=== PATIENT | female | born 1990 | race Caucasian/White ===

== ENCOUNTER 2019-06-07 14:31 | Emergency (ER) | payer OTHER, MEDICAID, SELFPAY ==
[2019-06-07 14:38] VITALS: BP 108/81; PULSE 97; RESP 18; O2SAT 99; BMI 35.5
== END 2019-06-07 14:46 | disposition left against medical advice (07) ==
LOC: ER 15:03
PROVIDERS: Emergency Provider Nurse Practitioner Family; Family Provider Family Medicine; PCP Family Medicine
DX: O99.89 Other specified diseases and conditions complicating pregnancy, childbirth and the puerperium (principal); R10.9 Unspecified abdominal pain; Z3A.09 9 weeks gestation of pregnancy; Z53.21 Procedure and treatment not carried out due to patient leaving prior to being seen by health care provider
CPT/HCPCS: 99281

== ENCOUNTER 2019-09-08 20:22 | Outpatient (CLI) | payer OTHER, MEDICAID, SELFPAY ==
[2019-09-08 20:38] VITALS: BP 112/71; PULSE 81; RESP 16; TEMP 36.4
[2019-09-08 20:39] VITALS: BMI 36.6
[2019-09-08 21:13] VITALS: BP 111/68; PULSE 84
[2019-09-08 21:53] LABS: Bilirubin Urine Neg (NEGATIVE); Blood Urine Neg (Negative); Glucose Urine UA Norm (Normal); Ketones Urine Negative (Negative); Leukocyte Esterase Urine Negative (Negative); Nitrate Urine Negative (Negative); Protein Urine Neg (Negative); Urine Appearance Clear (CLEAR); Urine Color Yellow (Yellow); Urobilinogen Urine 4 mg/dL (Negative); pH Urine 5 (5-7)
[2019-09-08 21:56] LABS: Add Urine Culture? No; Bacteria Urine 1+; Hyaline Casts Urine 0-4; Mucus Urine 3+; RBC Urine 0-4 /hpf (0-2)
[2019-09-08 22:15] VITALS: BP 111/68; PULSE 84
== END 2019-09-09 00:20 | disposition home or self-care (01) ==
LOC: OPOB 20:24 → OBGYN 20:25
PROVIDERS: PCP Family Medicine; Visit Provider Family Medicine
DX: O36.8190 Decreased fetal movements, unspecified trimester, not applicable or unspecified (principal); Z3A.00 Weeks of gestation of pregnancy not specified
CPT/HCPCS: 59025; 81001; 99211

== ENCOUNTER 2019-12-24 08:37 | Outpatient (CLI) | payer OTHER, MEDICAID, SELFPAY ==
[2019-12-24 08:53] VITALS: BP 119/78; PULSE 98
[2019-12-24 09:08] VITALS: BMI 35.6
[2019-12-24 09:11] VITALS: BP 122/80; PULSE 85
[2019-12-24 09:26] VITALS: BP 123/78; PULSE 84
[2019-12-24 09:31] VITALS: TEMP 36.7
[2019-12-24 09:41] VITALS: BP 119/73; PULSE 94
[2019-12-24 09:53] VITALS: BP 119/73; PULSE 94; RESP 16; TEMP 36.7
== END 2019-12-24 09:53 | disposition home or self-care (01) ==
LOC: OPOB 08:37 → OBGYN 08:38
PROVIDERS: PCP Family Medicine; Visit Provider Family Medicine
DX: O16.9 Unspecified maternal hypertension, unspecified trimester (principal); Z3A.00 Weeks of gestation of pregnancy not specified
CPT/HCPCS: 59025; 99211

== ENCOUNTER 2019-12-30 12:51 | Inpatient (IN) | payer OTHER, MEDICAID, SELFPAY ==
[2019-12-30] VITALS (21 sets, daily range): BP systolic 0–147; BP diastolic 0–105; PULSE 65–91; RESP 16–25; TEMP 36.3–36.9; O2SAT 95–100; BMI 35.6
[2019-12-30] MEDS: lactated ringers 1,000 ML 999 ML IV (13:00)
[2019-12-30] MEDS: lactated ringers 1,000 ML 125 ML (14:08)
--- NOTE | 2019-12-30 15:45 | P.ANESASSM_ITS ---
Pre-Anesthetic Assessment Pre-Anesthetic Assessment: Height/Weight: Height 1.68 m Temp Pulse Resp BP 98.5 F 84 18 147/88 12/30/19 13:17 12/30/19 15:17 12/30/19 13:17 12/30/19 15:17 Preop Diagnosis: IUP Proposed Procedure: Familial anesthetic complications: none Last intake: 0900 - water solids > 8 hrs Social: Social History: No alcohol and No tobacco Exam: Pre-Anes Outpt Exam: alert, oriented x 3, clear to auscultation bilaterally and regular rate & rhythm Airway: Cervical ROM: WNL MP: 2 Dentition: Full GI: GI: GERD Metabolic: Metabolic: Morbid obesity Neuropsych: Neuropsych: Depression Anesthetic Plan: ASA status: 2 Anesthesia: Regional (specify below) Risk of > 500 ml blood loss (7ml/kg in children): Yes, adequate IV access and fluids planned PFSH Anesthesia PFSH: Medical History (Updated 05/22/19 @ 16:53 by Tresa De Los Santos, RN) Patient denies medical problems Denies history of: high blood pressure, diabetes, heart, lung, liver, kidney, thyroid, bleeding problems, or clotting problems. PCP: Dr. Wade Surgical History (Updated 05/22/19 @ 16:55 by Tresa De Los Santos RN) History of appendectomy (~10/2011) [place]aroscopic [place] [facility] [place] History of dilation and curettage (~08/18/18) With suction, per Dr. Liu at [facility] Previous section (~11/06/16) Low transverse section. Performed by Dr. Le at [place] in [place], [place]. Diagnosis: Twin gestation. Single layer closure of the uterus. 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
--- NOTE | 2019-12-30 15:50 | PC.NURSE ---
Monitors removed to clean abd.
[2019-12-30] MEDS: metoclopramide 5 mg/mL SDV 2 mL 10 MG IV (15:54)
[2019-12-30] MEDS: citric acid-sodium citrate 30 mL UDC PO (15:54)
[2019-12-30] MEDS: famotidine 20 mg/2 mL INJ IVP (15:54)
--- NOTE | 2019-12-30 16:00 | PC.NURSE ---
Patient taken to OR room down stairs in surgery assisted by nurse via wheelchair.
--- NOTE | 2019-12-30 16:01 | P.HP_ITS ---
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 She has a history of C-sections, and was scheduled for a repeat section next week. She had been having some contractions throughout this week. Today she came in was having a hard contractions that she was having to breathe through there happened about every 5 minutes. Her cervix was found to be about 3 cm dilated. Despite hydration, her contractions continued. As result the decision was made to proceed with a repeat section today. Her is otherwise been unremarkable. She is GBS negative. She is PCR COVID negative. Her glucose screen was negative. She rubella immune. Her blood type is O+. Present Details : 5 Para: 4 Review of Systems General: Reports: 10 or more systems reviewed and unremarkable except in HPI and below Const: Denies: fever(s) Card: Denies: chest pain or irregular heart rhythm Resp: Denies: dyspnea GI: Reports: heartburn : Reports: pelvic pain and other (Vaginal pressure) Musc: Reports: back pain Medications/Allergies Home Medications Medication Instructions Recorded Confirmed Last Taken Type fluoxetine [Prozac] 40 mg PO DAILY 12/24/19 12/24/19 12/23/19 History prenat.vits,jarrett,xgd-npoh-rzjon 1 mg PO DAILY 12/24/19 12/24/19 Unknown History Allergies Allergy/AdvReac Type Severity Reaction Status Date / Time metronidazole [From Flagyl] AdvReac Flu-like Verified 05/22/19 16:51 symptoms 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 PCP: Dr. Wade Surgical History History of appendectomy (~10/2011) Laparoscopic procedure Performed by Dr Magaña [place] [facility] [place], [place], History of dilation and curettage (~08/18/18) With suction, per Dr. Liu at [facility] Previous section (~11/06/16) Low transverse section. Performed by Dr. Le at [facility] in [place], [place]. Diagnosis: Twin gestation. Single layer closure of the uterus. 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 Other Female Reproductive History: Hx Age of Menarche: 10 Duration of menses: other (5 days) Cycle Length: 28 days History History History 5 Term 2 Miscarriages/Ectopic 1 1 Living Children 4 Vitals/I&O/Wt Last Vital Signs Temp 98.5 F 12/30/19 13:17 Pulse 84 12/30/19 15:17 Resp 18 12/30/19 13:17 BP 0/0 12/30/19 15:46 Physical Exam Const: COMMON NORMALS: patient oriented x3 and alert HENMT: COMMON NORMALS: moist oral mucous membranes HEAD & SCALP: normal to inspection Chest: COMMONS NORMALS: normal inspection of the chest Resp: COMMON NORMALS: clear to auscultation bilaterally AUSCULTATION: clear to auscultation bilaterally Cardio: COMMON NORMALS: regular rate and regular rhythm RATE: regular rate RHYTHM: regular rhythm GI: INSPECTION: Yes normal to inspection and Yes other (Gravid) Extremity: COMMON NORMALS: normal to inspection GENERAL: Yes edema (Trace) Neuro: COMMON NORMALS: patient oriented x3, moves all extremities and no sensory deficits noted SENSORIUM/ORIENTATION: Yes alert Psych: COMMON NORMALS: mental status grossly normal Skin: COMMON NORMALS: no rashes or lesions noted GENERAL SKIN EXAM: no rashes or lesions noted A&P Assessment and plan (1) 39 weeks gestation of : We will proceed with her low transverse section. We discussed the risk of bleeding, and infection once again. She and her have no further questions and wished to proceed. Status: Acute (2) Active labor: Status: Acute Attestations Medical Necessity Statement*: I anticipate routine and post C- section care Coding Level of Care Code Acute Pci Security Consultant for Chg Fwd Diagnoses 39 weeks gestation of Z3A.39 Active labor
--- NOTE | 2019-12-30 16:13 | PC.NURSE ---
Arrived to OR room at 1613 and care handed over to surgical staff.
[2019-12-30 16:21] LABS: Basophils % 0.4 %; Eosinophils # 0.1 10^3/uL (0.0-0.8); Hematocrit 29.3 % (37.0-47.0); Hemoglobin 8.7 g/dL (11.5-15.3); Lymphocytes # 2.1 10^3/uL (0.8-4.8); Lymphocytes % 19.9 %; Mean Corpuscular HGB Conc 29.7 g/dL (30.0-36.0); Mean Corpuscular Hemoglobin 23.8 pg (28.0-34.0); Mean Corpuscular Volume 80.3 fL (81-99); Monocytes # 0.6 10^3/uL (0.2-0.9); Monocytes % 5.6 %; Neutrophils # 7.82 10^3/uL (1.8-7.7); Neutrophils % 72.5 %; Nucleated Red Blood Cells % 0 %; Platelet Count 251 10^3/cmm (130-400); Red Blood Count 3.65 10^6/uL (4.1-5.3); Red Cell Distribution Width 15.4 % (12.1-15.1); White Blood Count 10.8 10^3/uL (4.0-10.0)
--- NOTE | 2019-12-30 17:23 | PM.OP ---
Operative Report Date of procedure: December 30, 2019 Pre-op Diagnosis: 39-week EGA female in active labor with previous Post-op diagnosis: same Procedure Done: Repeat lower transverse section Specimens removed/disposition: Female infant with a weight of 6 pounds 1 ounce and Apgars of 7 and 9 Pathology: none sent Anesthesia: Epidural Estimated blood loss (mL): 400 Condition: stable Disposition: floor (OB) Brief History: Refer to history and physical Procedure: The patient was brought back to the operating room where she was prepped and draped in usual sterile fashion. Anesthesia was found to be adequate. A lower transverse skin incision was then made with a #10 blade. I then dissected down to the underlying subcutaneous tissue until arriving at the prerectal fascia. The fascia was then nicked with the scalpel bilaterally. The fascial incisions were then carried laterally with Soler scissors. Attention was then turned to the superior aspect of the incision which was grasped with kochers and tented up away from the underlying rectus abdominis muscles. The muscles were then dissected away from the fascia manually, and later with Soler scissors. Attention was then turned to the inferior aspect of the incision, and the fascia was dissected away from the underlying muscle in similar fashion. The rectus abdominis muscles were then spread manually. The peritoneum was entered manually. Excellent visualization of the uterus was noted. There was extensive peritoneal adhesions noted. A lower transverse uterine incision was then made with a #10 blade. Upon arriving at the intrauterine cavity, the uterine incision was then extended manually. The was noted to be in vertex position. The baby was delivered without difficulty. After delivery of the head, the mouth and nose were suctioned at the site of the incision. There was no meconium. There was no nuchal cord. The remainder of the body was then delivered and placed on the abdomen. The cord was cut and clamped. The baby was then handed to the waiting nurse. The placenta was removed intact. The intrauterine cavity was cleansed of any remaining debris. I elected to leave the uterus in the abdomen rather than breakdown all adhesions. The uterine incision was reapproximated in 2 layers. The first layer was performed with 0 Vicryl in a running locked stitch. The second layer was an imbricating stitch also using 0 Vicryl. The uterus was replaced into the abdomen. The peritoneum was then irrigated with warm saline. I reexamined the uterine incision and found it to be hemostatic. The rectus abdominis muscles were then reapproximated using 0 Vicryl in a running stitch. The fascia was then reapproximated using 0 Vicryl in running stitch. The subcutaneous tissue was then reapproximated using 0 Vicryl on a CTX. The skin was reapproximated using matt. A sterile dressing was placed. All counts were correct x2. Both the mother and baby were in stable condition.
--- NOTE | 2019-12-30 17:42 | SUR.PHASEI ---
1724 PT AWAKE ALERT TALKATIVE, WARM BLANKETS X 3 TO PT ABD SOFT DRESSING D/I TO LOWER ANTERIOR ABD, RAH PAD D/I PT WAS SPINAL WITH MAC PT HAS NORMAL SENSATION TO T 7 LEVEL
--- NOTE | 2019-12-30 18:00 | PC.NURSE ---
Patient brought to our ob floor from surgery via bed assisted by surgery staff.
--- NOTE | 2019-12-30 18:22 | SUR.PHASEI ---
1755 PT LOWER ABD MASSAGED FUNDUS AT UMBILICUS AREA, MASSAGED TO 2 FINGERS BELOW UMBILICUS, RAH PAD CHANGED WITH 3/4 MOD SATURATION NO CLOTS NOTED PT ALERT PT STATES NORMAL SENSATION TO T12 AREA NOW AND CAN MOVE THIGHS GROSSLY. PT TO FLOOR PER CART WITH AT BEDSIDE 1810 PT TO BED WITH SLIDE BOARD 3 NURSES, PT ALERT GISELL COOPERATIVE, , UP IN BED HOB AT 30 DEGREES, PT INFORMED NOT TO ELEVATE HOB BUT TO LET NURSE MOVE HEAD UP UNTIL SHE CAN FREELY MOVE HER KNEES. PT AGREED AND REMINDED NOT TO GET UP WITHOUT ASSISTANCE, BP 121/83 HR 70 SATS ON RA 99%
--- NOTE | 2019-12-30 18:26 | SUR.PHASEI ---
1809 KIM CATHETER PATENT OF YELLOW URINE NOT EMPTIED IN PACU
[2019-12-30 22:20] LABS: Basophils % 0.2 %; Eosinophils % 0.2 %; Hematocrit 23.2 % (37.0-47.0); Hemoglobin 6.9 g/dL (11.5-15.3); Lymphocytes # 2.1 10^3/uL (0.8-4.8); Lymphocytes % 16.8 %; Mean Corpuscular HGB Conc 29.7 g/dL (30.0-36.0); Mean Corpuscular Hemoglobin 23.8 pg (28.0-34.0); Mean Platelet Volume 9.7 fL (7.4-10.4); Monocytes # 0.7 10^3/uL (0.2-0.9); Monocytes % 5.8 %; Neutrophils # 9.43 10^3/uL (1.8-7.7); Neutrophils % 76.6 %; Nucleated Red Blood Cells % 0 %; Platelet Count 226 10^3/cmm (130-400); Red Cell Distribution Width 15.1 % (12.1-15.1); White Blood Count 12.3 10^3/uL (4.0-10.0)
[2019-12-31] VITALS (11 sets, daily range): BP systolic 104–127; BP diastolic 68–87; PULSE 68–81; RESP 14–18; TEMP 36.4–37.1; O2SAT 95–98
[2019-12-31] MEDS: dextrose 5%-lactated ringers 1,000 ML 125 ML IV (02:00)
[2019-12-31] MEDS: diphenhydrAMINE 50 mg/mL SDV 1mL 25 MG IVP ×2 (03:49→06:54)
[2019-12-31 05:53] LABS: Hematocrit 22.9 % (37.0-47.0); Mean Corpuscular HGB Conc 25.8 g/dL (30.0-36.0); Mean Corpuscular Hemoglobin 23.8 pg (28.0-34.0); Mean Corpuscular Volume 92.3 fL (81-99); Mean Platelet Volume 9.8 fL (7.4-10.4); Platelet Count 164 10^3/cmm (130-400); Red Blood Count 2.48 10^6/uL (4.1-5.3); Red Cell Distribution Width 15.9 % (12.1-15.1); White Blood Count 8.4 10^3/uL (4.0-10.0)
[2019-12-31 06:33] LABS: Hemoglobin 5.9 g/dL (11.5-15.3)
[2019-12-31] MEDS: acetaminophen 500 mg Tablet 1000 MG PO (06:54)
[2019-12-31] MEDS: ketorolac 30 mg/mL INJ IVP (06:54)
--- NOTE | 2019-12-31 09:48 | ANE.PACU2 ---
Inpatient post-anesthesia follow up: Airway intact: Yes Vital signs: Temperature 98.5 F Pulse Rate 71 Respiratory Rate 18 Blood Pressure 112/78 Pulse Oximetry 96 Oxygen Delivery Me thod Room Air Oxygen Flow Rate Fraction of Inspir ed Oxygen Hydration adequate: Yes Nausea and vomiting: No Pain level: 2 Mental status: Baseline Additional Comments: no signs of infection at neuraxial site, no headaches, up and walking no weakness
--- NOTE | 2019-12-31 09:59 | PC.NURSE ---
IV infiltrated blood transfusion paused to restart IV
[2019-12-31] MEDS: docusate sodium 100 mg Capsule PO ×2 (10:51→17:07)
[2019-12-31] MEDS: ferrous sulfate EC 325 mg Tablet PO ×2 (10:51→17:07)
[2019-12-31] MEDS: prenatal vitamin Capsule 1 CAP PO (10:51)
[2019-12-31] MEDS: fluoxetine 20 mg Capsule 40 MG PO (10:51)
--- NOTE | 2019-12-31 11:23 | P.PN_ITS ---
DIRECTOR REGULATORY COMPLIANCE Subjective Subjective: Interval history: The patient is doing very well. Her pain is been well controlled. She is not comfortable. She has noted no signs of hypovolemia. She has been urinating well. Her urine output is been appropriate. Her vitals have all been within normal limits. Labor: Station: -4 Amniotic Membrane Status: Intact Monitor Mode: External Contraction Pattern: Regular Status: Category l Vitals/I&O/Wt Last Vital Signs Temp 98.7 F 12/31/19 10:55 Pulse 71 12/31/19 10:30 Resp 16 12/31/19 10:30 BP 116/87 12/31/19 10:30 Pulse Ox 96 12/31/19 10:30 12/30/19 12/31/19 12/31/19 22:59 06:59 14:59 Intake Total 50 / 50 1999 / 2049 350 / 350 Output Total 720 / 720 600 / 1320 Balance -670 / -670 1400 / 730 350 / 350 Weight last 48 hrs Weight 221 lb Physical Exam Narrative: EXAM NARRATIVE: She is in no acute distress Lungs are clear auscultation bilaterally Her heart has a regular rate and rhythm Her fundus is below the umbilicus and firm Her dressing is clean, dry and intact Her extremities have trace edema Urinary Catheter Management^: F: Cath Placed During This Visit: yes Urinary Catheter Date of Insertion: 12/30/19 Urinary Catheter Time of Insertion: 16:30 Data : 12/31/19 05:45 A&P Assessment and plan (1) Status post : The patient appears to be doing very well in all regards with exception of her blood counts. While they have dropped an appropriate amount post , her blood counts were low before the . She has been given 1 unit of blood. We will get another CBC checked this afternoon. I am still hopeful she can go home tomorrow. Status: Acute Attestations Medical Necessity Statement*: Routine post care Coding Level of Care Code Acute Blind Hooker for David Leonard Diagnoses Status post Z98.891
--- NOTE | 2019-12-31 12:35 | PC.NURSE ---
@ 0838 blood transfusion rate changed to 240mL/hr for the duration of the transfusion.
[2019-12-31 14:57] LABS: Basophils % 0.3 %; Eosinophils % 0.2 %; Hematocrit 32.3 % (37.0-47.0); Lymphocytes # 2.7 10^3/uL (0.8-4.8); Lymphocytes % 18.3 %; Mean Corpuscular HGB Conc 30.3 g/dL (30.0-36.0); Mean Corpuscular Hemoglobin 24.4 pg (28.0-34.0); Mean Corpuscular Volume 80.3 fL (81-99); Mean Platelet Volume 9.7 fL (7.4-10.4); Monocytes # 0.8 10^3/uL (0.2-0.9); Monocytes % 5.7 %; Neutrophils # 10.81 10^3/uL (1.8-7.7); Neutrophils % 74.9 %; Nucleated Red Blood Cells % 0 %; Platelet Count 265 10^3/cmm (130-400); Red Blood Count 4.02 10^6/uL (4.1-5.3); Red Cell Distribution Width 15.2 % (12.1-15.1); White Blood Count 14.5 10^3/uL (4.0-10.0)
[2019-12-31 15:10] LABS: Hemoglobin 9.8 g/dL (11.5-15.3)
[2019-12-31] MEDS: HYDROcodone-acetaminophen 5-325 mg Tablet PO ×2 (17:16→21:56)
[2020-01-01] MEDS: HYDROcodone-acetaminophen 5-325 mg Tablet PO (03:47)
[2020-01-01 03:55] VITALS: BP 127/89; PULSE 82; RESP 17; O2SAT 96
--- NOTE | 2020-01-01 06:45 | P.DS_ITS ---
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 Performed by Dr. Le at [facility] in [place], [place]. Diagnosis: Twin gestation. Single layer closure of the uterus. (3) 39 weeks gestation of : Status: Acute Reason for Visit Reason for Visit: Abdominal pain Hospital Course Hospital Course: The patient is a 39-week female with a history of a lower transverse section who presented to the hospital in active labor. She was scheduled for a repeat section, as result we proceeded with a repeat on the day of admission. The was unremarkable. Her original hemoglobin was 8.7. I performed another hemoglobin approximately 4 hours after the surgery and she dropped to 6.9. The following morning she had dropped to 5.9. As result I elected to transfuse 1 unit of blood. Surprisingly, she increased to 9.8 after the unit. Hemodynamically, the patient was completely stable. Her urine output was always excellent. Her vitals were always within normal limits. Her bleeding postoperatively was minimal. She breast-fed, with some difficulty, but with the assistance of the nurse she was able to continue breast-feeding. Information Peripartum Data: Delivery Method: Section Physical Exam Narrative: EXAM NARRATIVE: She is in no acute distress Lungs are clear auscultation bilaterally Her heart has a regular rate and rhythm Her fundus is below the umbilicus and firm Her dressing is clean, dry and there are 2 matt in the midportion of the incision that have come out. I have instructed the nurses to place Steri-Strips in the nares. Her extremities have trace edema Urinary Catheter Management^: F: Cath Placed During This Visit: yes Urinary Catheter Date of Insertion: 12/30/19 Urinary Catheter Time of Insertion: 16:30 Discharge Data Data Completed and Pending: Pending at discharge Category Date Time Status Leukocyte Reduced RBC Routine Lab 12/30/19 13:45 Results Type and Screen R outine Lab 12/30/19 13:45 Results Labs from last 24 hours 12/31/19 12/30/19 14:42 13:45 WBC 14.5 H RBC 4.02 L Hgb 9.8 L D Hct 32.3 L D MCV 80.3 L D MCH 24.4 L MCHC 30.3 D RDW 15.2 H Plt Count 265 MPV 9.7 Neut % (Auto) 74.9 Lymph % (Auto) 18.3 Cole % (Auto) 5.7 Eos % (Auto) 0.2 Baso % (Auto) 0.3 Neut # (Auto) 10.81 H Lymph # (Auto) 2.7 Cole # (Auto) 0.8 Eos # (Auto) 0.0 Baso # (Auto) 0.0 Nucleated RBC % (a uto) 0 Nucleated RBCs # 0.0 Blood Type O Positive Rho(D) Type Positive Antibody Screen Negative Crossmatch See Detail Vitals: Last Vital Signs Temp 98.4 F 12/31/19 16:40 Pulse 82 01/01/20 03:55 Resp 17 01/01/20 03:55 BP 127/89 01/01/20 03:55 Pulse Ox 96 01/01/20 03:55 Discharge Plan Discharge Patient Disposition: Home Condition: Stable Prescriptions: New hydrocodone-acetaminophen 5-325 mg Tablet 1 - 2 tab PO Q4H PRN (Reason: Moderate To Severe Pain) Qty: 30 RF: 0 ferrous sulfate 325 mg (65 mg iron) Tablet,Delayed Release (Dr/Ec) See Rx Instructions .ROUTE .COMPLEX Qty: 60 RF: 1 ibuprofen 800 mg Tablet 800 mg PO TID Qty: 45 RF: 0 Continued fluoxetine [Prozac] 20 mg Capsule 40 mg PO DAILY RF: 0 prenat.vits,jarrett,zdx-heoa-aoynh capsule 1 mg PO DAILY RF: 0 Discharge Orders: Discharge Order (Routine); Ordered 01/01/20 Ordered By: Tony Luis Referrals: Tony Luis MD [Physician] - 4-7 days Discharge Diet: Usual diet Discharge Activity: Limit activity as instructed Discharge Attestations PRODUCT DEVELOPMENT CONSULTANT Time Spent in Discharge Care*: less than 30 min Coding Level of Care Code Acute Leather Shaver for Chg Fwd Diagnoses Status post Z98.891 Previous section Z98.891 39 weeks gestation of Z3A.39
[2020-01-01] MEDS: prenatal vitamin Capsule 1 CAP PO (08:28)
[2020-01-01] MEDS: docusate sodium 100 mg Capsule PO (08:28)
[2020-01-01] MEDS: ferrous sulfate EC 325 mg Tablet PO (08:28)
[2020-01-01] MEDS: fluoxetine 20 mg Capsule 40 MG PO (08:28)
[2020-01-01 09:25] VITALS: BP 129/86; PULSE 91; RESP 16; TEMP 36.7
[2020-01-01 09:35] VITALS: BP 129/86; PULSE 91; RESP 16; TEMP 36.7
== END 2020-01-01 09:30 | disposition home or self-care (01) | DRG 788 ==
LOC: OBGYN 12:52
PROVIDERS: Admitting Provider Family Medicine; PCP Family Medicine; Visit Provider Family Medicine
PROC: 10D00Z1 Extraction of Products of Conception, Low, Open Approach (ICD-10-PCS; CPT 59514; principal; 2019-12-30 16:30)
DX: O34.211 Maternal care for low transverse scar from previous cesarean delivery (principal); Z3A.39 39 weeks gestation of pregnancy; Z37.0 Single live birth
CPT/HCPCS: 12345; 36415; 36430; 51702; 59025; 59409; 85025; 85027; 86850; 86900; 86920; 96375; G0378; J0690; J1200; J1885; J2274; J2765; J3490; P9016

== ENCOUNTER 2020-05-16 10:24 | Emergency (ER) | payer OTHER, MEDICAID, SELFPAY ==
[2020-05-16 10:29] VITALS: BP 140/92; PULSE 97; RESP 16; TEMP 36.9; O2SAT 98; BMI 33.9
--- NOTE | 2020-05-16 10:29 | ED_ITS ---
HPI - Abdominal Pain General: Chief Complaint: Abdominal Pain Stated Complaint: Abd Pain Time Seen by Provider: 05/16/20 10:27 History of Present Illness: HPI narrative: 29-year-old male presents emergency room with complaint of abdominal pain. Right upper quadrant and epigastric pain radiating around to her back and into her shoulder. She is not had any dysuria urgency or frequency no hematuria. She has a baby by section approximately 4 months ago. Said intermittent episodes in the past but this is by far the most intense. She was seen earlier today at [facility] and had an ultrasound done that was reviewed after being read by the radiologist here. Labs were forwarded from [facility] and scanned in the chart as well liver enzymes were normal MD elicited complaint: abdominal pain Onset (ago): hour(s) Pain Consistency: constant Location: Epigastric Severity: mild Quality: cramping Radiation: other (Right shoulder) Migration to: RUQ Exacerbating factors: eating Relieving factors: nothing Associated Symptoms: Reports anorexia and GI cramping; Denies belching, bloating, change in bowel habits, change in stool character, chills, coffee ground emesis, constipation, diarrhea, dyspepsia, dysuria, excessive flatus, fever(s), heartburn, hematochezia, hematuria, hematemesis, fecal incontinence, loose stools, melena, nausea, poor appetite, syncope and vomiting Review of Systems Const: Denies: fever(s) or chills ENMT: Denies: throat pain, ear or mastoid pain, nasal discharge or nasal congestion Card: Denies: syncope Resp: Denies: dyspnea, productive cough or non-productive cough GI: Reports: GI cramping; Denies: nausea, vomiting, hematemesis, coffee ground emesis, heartburn, diarrhea, constipation, belching, excessive flatus, fecal incontinence, change in bowel habits, change in stool character, hematochezia or melena : Denies: dysuria or hematuria Skin/Breast: Denies: rash or pruritus PFSH ED PFSH: Medical History Patient denies medical problems Denies history of: high blood pressure, diabetes, heart, lung, liver, kidney, thyroid, bleeding problems, or clotting problems. PCP: Dr. Spurling Surgical History History of appendectomy (~10/2011) Laparoscopic procedure Performed by Dr Magaña at [facility] in [place], [place], History of dilation and curettage (~08/18/18) With suction, per Dr. Liu at [facility] Previous section (~11/06/16) Low transverse section. Performed by Dr. Le at [facility] in [place], [place]. Diagnosis: Twin gestation. Single layer closure of the uterus. 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 Physical Exam Const: COMMON NORMALS: no acute distress GENERAL APPEARANCE: cooperative and comfortable ORIENTATION/CONSCIOUSNESS: Yes awake, Yes oriented to person, Yes oriented to place and Yes oriented to time HENMT: COMMON NORMALS: normocephalic, atraumatic and hearing grossly normal bilaterally HEAD & SCALP: normocephalic and atraumatic Neck/C-Spine: COMMON NORMALS: no JVD Resp: COMMON NORMALS: normal respiratory effort, No retractions, No use of accessory muscles and clear to auscultation bilaterally AUSCULTATION: clear to auscultation bilaterally Cardio: COMMON NORMALS: no JVD, regular rate, regular rhythm and No murmurs present (Cardio) RATE: regular rate RHYTHM: regular rhythm GI: COMMON NORMALS: Soft to palpation and No hepatosplenomegaly present AUSCULTATION: Yes normoactive bowel sounds PALPATION: Yes Soft to palpation, Yes Tenderness to palpation present (GI) (No guarding or rebound negative Christensen sign) Details: RUQ, No Guarding due to palpation present (GI) and Yes No hepatosplenomegaly present Extremity: COMMON NORMALS: normal to inspection, capillary refill normal, no clubbing, cyanosis or edema, no calf tenderness and no pedal edema Neuro: SENSORIUM/ORIENTATION: Yes oriented to person, Yes oriented to place and Yes oriented to time Skin: COMMON NORMALS: no rashes or lesions noted GENERAL SKIN EXAM: no rashes or lesions noted Course Vital Signs: Vital signs: Vital Signs Temperature 98.4 F 05/16/20 10:29 Pulse Rate 77 05/16/20 11:57 Respiratory Rate 17 05/16/20 11:57 Blood Pressure 128/83 05/16/20 11:57 Pulse Oximetry 97 05/16/20 11:57 MDM - Abdominal Pain MDM Narrative: Medical decision making narrative: Patient given pain medications and antiemetics bland diet probably best to stay with liquids for the next couple of days. She has appointment next early next week with Dr. Pires return if pain uncontrollable. I do suspect she has ileocolic due to the stones are identified on the ultrasound at this point is not emergent to have removed without worsening or change symptoms return Lab Data: Labs: Lab Results 05/16/20 05/16/20 05/16/20 Range/Units 10:45 10:45 11:13 WBC 12.0 H (4.0-10.0) 10^3/ uL RBC 4.60 (4.1-5.3) 10^6/u L Hgb 12.3 (11.5-15.3) g/dL Hct 38.6 (37.0-47.0) % MCV 83.9 (81-99) fL MCH 26.7 L (28.0-34.0) pg MCHC 31.9 (30.0-36.0) g/dL RDW 13.5 (12.1-15.1) % Plt Count 326 (130-400) 10^3/c mm MPV 9.6 (7.4-10.4) fL Neut % (Auto) 70.4 % Lymph % (Auto) 22.4 % [place] % (Auto) 3.8 % Eos % (Auto) 2.8 % Baso % (Auto) 0.3 % Neut # (Auto) 8.43 H (1.8-7.7) 10^3/u L Lymph # (Auto) 2.7 (0.8-4.8) 10^3/u L [place] # (Auto) 0.5 (0.2-0.9) 10^3/u L Eos # (Auto) 0.3 (0.0-0.8) 10^3/u L Baso # (Auto) 0.0 (0.0-0.1) 10^3/u L Nucleated RBC % (a uto) 0 % Nucleated RBCs # 0.0 /100WBC Sodium 137 (136-145) mmol/L Potassium 3.8 (3.5-5.1) mmol/L Chloride 104 (98-107) mmol/L Carbon Dioxide 25 (22-29) mmol/L Anion Gap 11.8 (5-19) BUN 11 (6-20) mg/dL Creatinine 0.5 (0.5-0.9) mg/dL GFR Calculation 143.9 H (90-130) mL/min Glucose 98 (65-115) mg/dL Calculated Osmolal ity 283 L (285-295) mOsm/k g Calcium 9.1 (8.5-10.5) mg/dL Total Bilirubin 0.2 (0.15-1.2) mg/dL AST 12 (0-32) U/L ALT 12 (0-33) U/L Alkaline Phosphata se 110 H (35-105) IU/L Total Protein 7.2 (6.6-8.7) g/dL Albumin 3.8 (3.5-5.2) g/dL Globulin 3.4 (1.3-4.6) g/dL Lipase 13 (13-60) U/L Urine Color Yellow (Yellow) Urine Appearance Clear (CLEAR) Urine pH 9 H (5-7) Ur Specific Gravit y 1.015 (1.005-1.030) Urine Protein Neg (Negative) Urine Glucose (UA) Norm (Normal) Urine Ketones Negative (Negative) Urine Blood Neg (Negative) Urine Nitrate Negative (Negative) Urine Bilirubin Neg (Negative) Prot Sulfosalicyli c Acd Negative (Negative) Urine Urobilinogen Norm (Negative) mg/dL Ur Leukocyte Natalie ase Negative (Negative) Discharge Plan Discharge Patient Disposition: Home Clinical Impression: Cholelithiasis Condition: Stable Prescriptions: New hydrocodone-acetaminophen 5-325 mg tablet 1 tab PO Q6H PRN (Reason: pain) Qty: 25 RF: 0 Zofran 4 mg tablet 4 mg PO Q6H PRN (Reason: nausea and vomiting) Qty: 20 RF: 0 No Action Sprintec (28) 0.25-35 mg-mcg tablet 1 tab PO DAILY@22 RF: 0 levothyroxine 50 mcg Tablet 50 mcg PO QAM RF: 0 fluoxetine 60 mg tablet 60 mg PO DAILY@22 RF: 0 Discharge Orders: Discharge ED (Routine); Ordered 05/16/20 Ordered By: Gigi Kamara Referrals: Anand Wade MD [Primary Care Provider] - Discharge Diet: Clear Liquid Discharge Activity: Limit activity as instructed Activity Restrictions/Additional Instructions: manager assessment will make arrangements for you to see surgery. Coding Level of Care Code ED Quality Assurance Group Leader for David Leonard
[2020-05-16 10:58] VITALS: O2SAT 97
[2020-05-16 11:02] LABS: Basophils % 0.3 %; Eosinophils # 0.3 10^3/uL (0.0-0.8); Eosinophils % 2.8 %; Hematocrit 38.6 % (37.0-47.0); Hemoglobin 12.3 g/dL (11.5-15.3); Lymphocytes # 2.7 10^3/uL (0.8-4.8); Lymphocytes % 22.4 %; Mean Corpuscular HGB Conc 31.9 g/dL (30.0-36.0); Mean Corpuscular Hemoglobin 26.7 pg (28.0-34.0); Mean Corpuscular Volume 83.9 fL (81-99); Mean Platelet Volume 9.6 fL (7.4-10.4); Monocytes # 0.5 10^3/uL (0.2-0.9); Monocytes % 3.8 %; Neutrophils # 8.43 10^3/uL (1.8-7.7); Neutrophils % 70.4 %; Nucleated Red Blood Cells % 0 %; Platelet Count 326 10^3/cmm (130-400); Red Cell Distribution Width 13.5 % (12.1-15.1)
[2020-05-16] MEDS: sodium chloride 0.9% 1,000 ML 999 ML IV (11:06)
[2020-05-16] MEDS: ondansetron 2 mg/ML SDV 2 mL 4 MG IVP (11:06)
[2020-05-16 11:20] LABS: Alanine Aminotransferase 12 U/L (0-33); Albumin Level 3.8 g/dL (3.5-5.2); Alkaline Phosphatase 110 IU/L (35-105); Anion Gap 11.8 (5-19); Aspartate Amino Transferase 12 U/L (0-32); Blood Urea Nitrogen 11 mg/dL (6-20); Calcium 9.1 mg/dL (8.5-10.5); Carbon Dioxide 25 mmol/L (22-29); Chloride 104 mmol/L (98-107); Globulin 3.4 g/dL (1.3-4.6); Glomerular Filtration Rate 143.9 mL/min (90-130); Glucose 98 mg/dL (65-115); Lipase 13 U/L (13-60); Osmolality Calculated 283 mOsm/kg (285-295); Potassium 3.8 mmol/L (3.5-5.1); Sodium 137 mmol/L (136-145); Total Bilirubin 0.2 mg/dL (0.15-1.2); Total Protein 7.2 g/dL (6.6-8.7)
[2020-05-16 11:24] LABS: Add Urine Microscopic? NO
[2020-05-16 11:33] LABS: Bilirubin Urine Neg (Negative); Blood Urine Neg (Negative); Glucose Urine UA Norm (Normal); Ketones Urine Negative (Negative); Leukocyte Esterase Urine Negative (Negative); Nitrate Urine Negative (Negative); Protein Urine Neg (Negative); Specific Gravity, Urine 1.015 (1.005-1.030); Sulfosalicylic Acid Urine Negative (Negative); Urine Appearance Clear (CLEAR); Urine Color Yellow (Yellow); Urobilinogen Urine Norm (Negative); pH Urine 9 (5-7)
[2020-05-16 11:57] VITALS: BP 128/83; PULSE 77; RESP 17; O2SAT 97
--- NOTE | 2020-05-16 12:00 | DCPLANNER ---
physician relations manager had message to schedule a follow up appointment for patient with Dr. Pires. physician relations manager called the office of Dr. Pires, spoke with Fanny, a follow up appointment was scheduled for Thursday, May 21, 2020 at 9:[address] Pires. physician relations manager informed patient of the scheduled appointment.
--- NOTE | 2020-06-21 11:05 | DCPLANNER ---
Patient had a follow up appointment scheduled for 05.21.[address] Pires - patient did attend appointment.
== END 2020-05-16 11:57 | disposition home or self-care (01) ==
PROVIDERS: Emergency Provider Family Medicine; PCP Family Medicine
DX: K80.20 Calculus of gallbladder without cholecystitis without obstruction (principal)
CPT/HCPCS: 12345; 80053; 81003; 83690; 85025; 96361; 96374; 96375; 99283; J2405; J7030

== ENCOUNTER → 2021-07-03 08:50 | Outpatient (BNVA) | payer MEDICAID, SELFPAY | PROVIDERS: PCP Family Medicine; Visit Provider Internal Medicine | DX: E03.8 Other specified hypothyroidism (principal); E06.3 Autoimmune thyroiditis | CPT/HCPCS: 99204 ==

== ENCOUNTER 2022-06-05 21:50 | Emergency (ER) | payer MEDICAID, SELFPAY ==
[2022-06-05 21:56] VITALS: BP 127/87; PULSE 84; RESP 16; TEMP 36.5; O2SAT 98
[2022-06-05 22:18] LABS: Add Urine Microscopic? NO; Charge for UA Resulting for Rev
--- NOTE | 2022-06-05 22:28 | ED_ITS ---
HPI - Abdominal Pain General: Chief Complaint: Abdominal Pain Stated Complaint: cramping, 8 weeks Time Seen by Provider: 06/05/22 22:06 Source: patient Mode of arrival: ambulatory Limitations: no limitations History of Present Illness: 32-year-old female who is roughly 7 to 8 weeks states she been having some abdominal cramping over the last 2 hours. She states the pain is a cramping pain denies any severe pain she rates it a 2 out of 10 denies any dysuria denies any vaginal bleeding denies any fevers. Associated Symptoms: Denies chills, dysuria and fever(s) Related Data: Date of Last Menstrual Period: 04/11/22 Review of Systems Const: Denies: fever(s), chills, body aches or change in appetite Eyes: Denies: blurry vision or eye discomfort ENMT: Denies: throat pain or dental pain Card: Denies: chest pain Resp: Denies: dyspnea GI: Reports: abdominal pain : Denies: dysuria Musc: Denies: neck pain or back pain Skin/Breast: Denies: rash Neuro: Denies: headache(s) Psych: Denies: depression Dae/Lymph: Denies: easy bruising All/Imm: Denies: urticaria PFSH ED PFSH: Medical History Patient denies medical problems Denies history of: high blood pressure, diabetes, heart, lung, liver, kidney, thyroid, bleeding problems, or clotting problems. PCP: Dr. Wade Surgical History History of appendectomy (~10/2011) Laparoscopic procedure Performed by Dr Magaña at [facility] in [place], [place], History of dilation and curettage (~08/18/18) With suction, per Dr. Liu at [facility] Previous section (~11/06/16) Low transverse section. Performed by Dr. Le at [facility] in [place], [place]. Diagnosis: Twin gestation. Single layer closure of the uterus. 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 Female Reproductive History: Date of last menstrual period: 04/11/22 Physical Exam Const: COMMON NORMALS: no acute distress, patient oriented x3 and healthy appearing HENMT: COMMON NORMALS: normocephalic and atraumatic HEAD & SCALP: normocephalic and atraumatic Eye: COMMON NORMALS: Equal, round and reactive pupils present and EOMs intact bilaterally PUPIL: Yes Equal, round and reactive pupils present Neck/C-Spine: COMMON NORMALS: full ROM and supple Chest: COMMONS NORMALS: normal inspection of the chest and normal palpation of entire chest wall Resp: COMMON NORMALS: normal respiratory effort, No retractions, No use of accessory muscles and clear to auscultation bilaterally AUSCULTATION: clear to auscultation bilaterally Cardio: COMMON NORMALS: regular rate, regular rhythm and No murmurs present (Cardio) RATE: regular rate RHYTHM: regular rhythm GI: COMMON NORMALS: Normal to inspection, nondistended, normoactive bowel sounds present, Soft to palpation, non-tender and no masses PALPATION: Yes Soft to palpation Extremity: COMMON NORMALS: normal to inspection and full ROM Neuro: COMMON NORMALS: patient oriented x3, moves all extremities and no focal motor deficits Psych: COMMON NORMALS: mental status grossly normal, Normal thought process present and cooperative THOUGHT PROCESS: Normal thought process present Skin: COMMON NORMALS: no rashes or lesions noted and no wounds GENERAL SKIN EXAM: no rashes or lesions noted Course Vital Signs: Vital signs: Vital Signs Temperature 97.7 F 06/05/22 21:56 Pulse Rate 84 06/05/22 21:56 Respiratory Rate 16 06/05/22 21:56 Blood Pressure 127/87 06/05/22 21:56 Pulse Oximetry 98 06/05/22 21:56 Oxygen Delivery Me thod 06/05/22 21:56 MDM - Abdominal Pain Medical Decision Making Patient presents for an abdominal pain in some nausea is only cramping she has no tenderness she had appendectomy her abdominal exam is benign she had no bleeding I did a bedside ultrasound that showed an IUP consistent with dates heart rate of 162. Her symptoms resolved after Reglan we will prescribe her Reglan for home and she is to follow-up with Dr. Luis return if worsening Lab Data 06/05/22 22: Labs/Radiology: Laboratory Results WBC 11.8 10^3/uL (4.0-10.0) H 06/05/22 22:30 RBC 4.49 10^6/uL (4.1-5.3) 06/05/22 22: Hgb 12.1 g/dL (11.5-15.3) 06/05/22 22: Hct 37.6 % (37.0-47.0) 06/05/22: MCV 83.7 fl (81-99) 06/05/22: MCH 26.9 pg (28.0-34.0) L 06/05/22: MCHC 32.2 g/dL (30.0-36.0) 06/05/22: RDW 14.6 % (12.1-15.1) 06/05/22 22: Plt Count 322 10^3/cmm (130-400) 06/05/22 22: MPV 9.5 fL (7.4-10.4) 06/05/22 22: Neut % (Auto) 61.1 % 06/05/22: Lymph % (Auto) 29.1 % 06/05/22 22: [place] % (Auto) 6.6 % 06/05/22: Eos % (Auto) 2.4 % 06/05/22: Baso % (Auto) 0.4 % 06/05/22: Neut # (Auto) 7.23 10^3/uL (1.8-7.7) 06/05/22: Lymph # (Auto) 3.4 10^3/uL (0.8-4.8) 06/05/22: [place] # (Auto) 0.8 10^3/uL (0.2-0.9) 06/05/22 22:30 Eos # (Auto) 0.3 10^3/uL (0.0-0.8) 06/05/22: Baso # (Auto) 0.1 10^3/uL (0.0-0.1) 06/05/22 22:30 Nucleated RBC % (auto) 0 % 06/05/22 22:30 Nucleated RBCs # 0.0 /100WBC 06/05/22 22:30 Ser , Semi-Qnt 77607.00 mIU/mL 06/05/22 22:30 Urine Color Yellow (Yellow) 06/05/22 22:00 Urine Appearance Clear (CLEAR) 06/05/22 22:00 Urine pH 6 (5-7) 06/05/22 22:00 Ur Specific [place] 1.020 (1.005-1.030) 06/05/22 22:00 Urine Protein Neg (Negative) 06/05/22 22:00 Urine Glucose (UA) Norm (Normal) 06/05/22 22:00 Urine Ketones Negative (Negative) 06/05/22 22:00 Urine Blood Neg (Negative) 06/05/22 22:00 Urine Nitrate Negative (Negative) 06/05/22 22:00 Urine Bilirubin Neg (Negative) 06/05/22 22:00 Urine Urobilinogen Neg mg/dL (Negative) 06/05/22 22:00 Ur Leukocyte Esterase Negative (Negative) 06/05/22 22:00 Discharge Plan Discharge Patient Disposition: Home Clinical Impression: Abdominal pain affecting Condition: Stable Prescriptions: New Reglan 10 mg tablet 10 mg PO Q6H PRN (Reason: nausea and vomiting) Qty: 20 0RF No Action liothyronine [Cytomel] 5 mcg tablet 5 mcg PO DAILY Qty: 90 3RF Rx Instructions: Take one tablet by mouth daily. Sprintec (28) 0.25-35 mg-mcg tablet 1 tab PO DAILY@22 levothyroxine 50 mcg Tablet 50 mcg PO QAM fluoxetine 60 mg tablet 60 mg PO DAILY@22 Discharge Orders: Discharge ED (Routine); Ordered 06/05/22 Ordered By: Kan Andre Referrals: Tony Luis MD [Primary Care Provider] - 1-3 days Discharge Diet: Advance as tolerated Discharge Activity: Resume usual activity Patient Instructions: Abdominal Pain in (ED) Coding Level of Care Code ED Shale Planer Operator for Chg Aisha
[2022-06-05 22:36] LABS: Basophils # 0.1 10^3/uL (0.0-0.1); Basophils % 0.4 %; Eosinophils # 0.3 10^3/uL (0.0-0.8); Eosinophils % 2.4 %; Hematocrit 37.6 % (37.0-47.0); Hemoglobin 12.1 g/dL (11.5-15.3); Lymphocytes # 3.4 10^3/uL (0.8-4.8); Lymphocytes % 29.1 %; Mean Corpuscular HGB Conc 32.2 g/dL (30.0-36.0); Mean Corpuscular Hemoglobin 26.9 pg (28.0-34.0); Mean Corpuscular Volume 83.7 fl (81-99); Mean Platelet Volume 9.5 fL (7.4-10.4); Monocytes # 0.8 10^3/uL (0.2-0.9); Monocytes % 6.6 %; Neutrophils # 7.23 10^3/uL (1.8-7.7); Neutrophils % 61.1 %; Nucleated Red Blood Cells % 0 %; Platelet Count 322 10^3/cmm (130-400); Red Blood Count 4.49 10^6/uL (4.1-5.3); Red Cell Distribution Width 14.6 % (12.1-15.1); White Blood Count 11.8 10^3/uL (4.0-10.0)
[2022-06-05 22:39] LABS: Bilirubin Urine Neg (Negative); Blood Urine Neg (Negative); Glucose Urine UA Norm (Normal); Ketones Urine Negative (Negative); Leukocyte Esterase Urine Negative (Negative); Nitrate Urine Negative (Negative); Protein Urine Neg (Negative); Urine Appearance Clear (CLEAR); Urine Color Yellow (Yellow); Urobilinogen Urine Neg (Negative); pH Urine 6 (5-7)
[2022-06-05] MEDS: metoclopramide 5 mg/mL SDV 2 mL 10 MG IVP (22:41)
[2022-06-06 00:19] VITALS: BP 116/77; PULSE 89; RESP 14; O2SAT 97
== END 2022-06-05 22:39 | disposition home or self-care (01) ==
PROVIDERS: Emergency Provider Emergency Medicine; PCP Family Medicine
DX: O26.891 Other specified pregnancy related conditions, first trimester (principal); R10.9 Unspecified abdominal pain; Z3A.08 8 weeks gestation of pregnancy
CPT/HCPCS: 81003; 84702; 85025; 96374; 96375; 99284; J2765

== ENCOUNTER 2022-12-11 07:34 | Inpatient (IN) | payer MEDICAID, SELFPAY ==
[2022-12-11] VITALS (38 sets, daily range): BP systolic 97–137; BP diastolic 58–79; PULSE 70–122; RESP 15–18; TEMP 36.1–36.8; O2SAT 95–100; BMI 35.6
[2022-12-11 04:59] LABS: Nitrazine Paper, PH Inconclusive
[2022-12-11 04:59] LABS: Actim Prom Positive
[2022-12-11 05:42] LABS: Basophils % 0.3 %; Eosinophils # 0.1 10^3/uL (0.0-0.8); Eosinophils % 0.9 %; Hematocrit 32.3 % (36-47); Lymphocytes # 2.7 10^3/uL (0.8-4.8); Lymphocytes % 22.6 %; Mean Corpuscular Hemoglobin 24.6 pg (27-33); Mean Corpuscular Volume 79.6 fl (85-98); Mean Platelet Volume 9.9 fL (7.4-10.4); Monocytes # 0.8 10^3/uL (0.2-0.9); Neutrophils # 8.02 10^3/uL (1.8-7.7); Neutrophils % 68.5 %; Nucleated Red Blood Cells % 0 %; Platelet Count 246 10^3/cmm (157-399); Red Blood Count 4.06 10^6/uL (3.85-5.65); Red Cell Distribution Width 14.8 % (12.1-15.1); White Blood Count 11.72 10^3/uL (3.29-11.43)
[2022-12-11] MEDS: ceFAZolin 2,000 MG in sodium chloride 0.9% (plus) 50 ML 100 MG IV (05:48)
[2022-12-11] MEDS: metoclopramide 5 mg/mL SDV 2 mL 10 MG IVP (05:48)
--- NOTE | 2022-12-11 05:50 | PM.OBGYHP ---
Providers/Chief Complaint Admitting Physician: Tony Luis Primary Care Provider: Tony Luis MD Chief Complaint: Poss SROM HPI SHANK SKINNER History of Present Illness Willem Ruff is a 32 year 7 para 5-0-1-5 old female at 36 weeks estimated gestational age who presents to the hospital this morning complaining of contractions and saying her water broke. She states that she had a gush of fluid at about 2:00 this morning. She has not had intermittent trickling since that time. She is also had contractions that have been mild but have continued through the morning since shortly after she had the gush of fluid. After arriving at the hospital she was evaluated and found to be nitrazine positive and actin PROM positive. The patient is a repeat section and had a scheduled in 3 weeks. The patient's has been relatively unremarkable. She did not pass her initial glucose screen, and has not done her 3-hour glucose screen. Her blood type is O+. Her antibody screen is negative she is rubella immune. The remainder of her infectious disease profile was within normal limits. Review of Systems General: Reports: 10 or more systems reviewed and unremarkable except in HPI and below Const: Reports: fatigue; Denies: fever(s) Eyes: Denies: change in vision Card: Reports: chest pain (Intermittent. Not related to activity. Sharp at times.) Musc: Reports: back pain Dae/Lymph: Denies: easy bruising Medications/Allergies Home Medications Medication Instructions Recorded Confirmed Last Taken Type fluoxetine 60 mg tablet 60 mg PO DAILY@05/16/20 07/03/21 05/15/20 History levothyroxine 50 mcg tablet 50 mcg PO QAM 05/16/20 07/03/21 05/15/20 History norgestimate 0.25 mg-ethinyl 1 tab PO DAILY@05/16/20 07/03/21 05/15/20 History estradiol 35 mcg tablet (Sprintec (28)) liothyronine 5 mcg tablet (Cytomel) 5 mcg PO DAILY #90 tabs 07/03/21 07/03/21 Unknown Rx metoclopramide HCl 10 mg tablet 10 mg PO Q6H PRN nausea and 06/05/22 Unknown Rx (Reglan) vomiting #20 tabs Allergies Allergy/AdvReac Type Severity Reaction Status Date / Time metronidazole [From Flagyl] AdvReac Flu-like Verified 06/05/22 22:00 symptoms PFSH SHANK SKINNER PFSH: Medical History Patient denies medical problems Denies history of: high blood pressure, diabetes, heart, lung, liver, kidney, thyroid, bleeding problems, or clotting problems. PCP: Dr. Wade Surgical History History of appendectomy (~10/2011) Laparoscopic procedure Performed by Dr Magaña at [facility] in [place], [place], History of dilation and curettage (~08/18/18) With suction, per Dr. Liu at [facility] Previous section (~11/06/16) Low transverse section. Performed by Dr. Le at [facility] in [place], [place]. Diagnosis: Twin gestation. Single layer closure of the uterus. 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 Female Reproductive History: Hx Age of Menarche: 10 Duration of menses: other (5 days) Cycle Length: 28 days History History History 5 Term 2 1 Miscarriages/Ectopic 1 Living Children 4 Vitals/I&O/Wt Last Vital Signs Temp 97.0 F L 12/11/22 04:34 Pulse 100 12/11/22 04:37 BP 109/70 12/11/22 04:37 Physical Exam Const: COMMON NORMALS: patient oriented x3 and alert HENMT: COMMON NORMALS: moist oral mucous membranes HEAD & SCALP: normal to inspection Chest: COMMONS NORMALS: normal inspection of the chest Resp: COMMON NORMALS: clear to auscultation bilaterally AUSCULTATION: clear to auscultation bilaterally Cardio: COMMON NORMALS: regular rate and regular rhythm RATE: regular rate RHYTHM: regular rhythm GI: INSPECTION: Yes normal to inspection and Yes other (Gravid) Extremity: COMMON NORMALS: normal to inspection GENERAL: Yes edema (Trace) Neuro: COMMON NORMALS: patient oriented x3, moves all extremities and no sensory deficits noted SENSORIUM/ORIENTATION: Yes alert Psych: COMMON NORMALS: mental status grossly normal Skin: COMMON NORMALS: no rashes or lesions noted GENERAL SKIN EXAM: no rashes or lesions noted Data 12/11/22 16:08 12/11/22 16:00 A&P Assessment and plan (1) 36 weeks gestation of : Since it appears that the membranes are ruptured, we will proceed with a repeat section. I once again discussed the risks including risk of bleeding, infection, and damage intra-abdominal organs. She has no further questions and wishes to proceed. (2) Spontaneous rupture of membranes: (3) History of : Attestations Medical Necessity Statement*: I anticipate routine and post care Coding Level of Care Code Acute Code for Chg Fwd Diagnoses 36 weeks gestation of Z3A.36 Spontaneous rupture of membranes History of Z98.891
[2022-12-11] MEDS: famotidine 20 mg/2 mL INJ IVP (05:59)
[2022-12-11] MEDS: citric acid-sodium citrate 30 mL UDC PO (05:59)
--- NOTE | 2022-12-11 06:05 | ANES.PREANE2 ---
Pre-Anesthetic Assessment Height/Weight: Height 1.68 m Temp Pulse BP 97.0 F L 100 109/70 12/11/22 04:34 12/11/22 04:37 12/11/22 04:37 Preop Diagnosis: previous repeat section Familial anesthetic complications: none Was Beta Desi taken within 24 hours: N/A Was Clonidine taken within 24 hours: N/A Social No alcohol and No tobacco Exam alert, oriented x 3 and clear to auscultation bilaterally Airway Submandibular: within normal limits Cervical ROM: within normal limits Mallampati: Class II Dentition: full Pulmonary None reported CV/HEM non-cardiac chest pain reported per Dr. Toby SANCHEZ None reported Hepatic None reported GI Gastroesophageal Reflux Disease nausea Metabolic Thyroid Disease ([place]) failed 1 hour glucose did not complete 3 hour. [facility] None reported Neuropsych Anxiety Anesthetic Plan ASA status: 2 Anesthesia: Regional (specify below) (SAB) Medications/Allergies Home Medications Medication Instructions Recorded Confirmed Last Taken Type fluoxetine 60 mg tablet 60 mg PO DAILY@05/16/20 07/03/21 05/15/20 History levothyroxine 50 mcg tablet 50 mcg PO QAM 05/16/20 07/03/21 05/15/20 History norgestimate 0.25 mg-ethinyl 1 tab PO DAILY@05/16/20 07/03/21 05/15/20 History estradiol 35 mcg tablet (Sprintec (28)) liothyronine 5 mcg tablet (Cytomel) 5 mcg PO DAILY #90 tabs 07/03/21 07/03/21 Unknown Rx metoclopramide HCl 10 mg tablet 10 mg PO Q6H PRN nausea and 06/05/22 Unknown Rx (Reglan) vomiting #20 tabs Allergies Allergy/AdvReac Type Severity Reaction Status Date / Time metronidazole [From Flagyl] AdvReac Flu-like Verified 06/05/22 22:00 symptoms [facility] Anesthesia Medical History Patient denies medical problems Denies history of: high blood pressure, diabetes, heart, lung, liver, kidney, thyroid, bleeding problems, or clotting problems. PCP: Dr. Wade Surgical History History of appendectomy (~10/2011) Laparoscopic procedure Performed by Dr Magaña at [facility] in [place], [place], History of dilation and curettage (~08/18/18) With suction, per Dr. Liu at [facility] Previous section (~11/06/16) Low transverse section. Performed by Dr. Le at [facility] in [place], [place]. Diagnosis: Twin gestation. Single layer closure of the uterus. 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
--- NOTE | 2022-12-11 08:03 | PM.OP ---
Operative Report Date of procedure: December 11, 2022 Pre-op diagnosis: 1. 32-year-old 7 para 5-0-1-5 at 36 weeks estimated gestational age 2. Rupture of membranes 3. History of section Post-op diagnosis: Status post Procedure done: Lower transverse section Specimens removed/disposition: 1. Male infant with a weight of 5 pounds 8 ounces and Apgars of 7 and 8 2. Placenta with a three-vessel cord delivered intact Surgeon: Tony Luis Estimated blood loss (mL): 300 Complications: None Procedure: The patient was brought back to the operating room where she was prepped and draped in usual sterile fashion. Anesthesia was found to be adequate. A lower transverse skin incision was then made with a #10 blade. I then dissected down to the underlying subcutaneous tissue until arriving at the prerectal fascia. The fascia was then nicked with the scalpel bilaterally. The fascial incisions were then carried laterally with Soler scissors. Attention was then turned to the superior aspect of the incision which was grasped with kochers and tented up away from the underlying rectus abdominis muscles. The muscles were then dissected away from the fascia manually, and later with Soler scissors. Attention was then turned to the inferior aspect of the incision, and the fascia was dissected away from the underlying muscle in similar fashion. The rectus abdominis muscles were then spread manually. The peritoneum was entered manually. Excellent visualization of the uterus was noted. A lower transverse uterine incision was then made with a #10 blade. Upon arriving at the intrauterine cavity, the uterine incision was then extended manually. The infant was noted to be in vertex position. The baby was delivered without difficulty. There was no meconium. There was a nuchal cord x1. Shortly after delivery, the mouth and nose were suctioned. The cord was cut and clamped. The baby was then handed to Dr. Resendiz and assisting nurse. The placenta was removed intact. Due to extensive adhesions, I elected to leave the uterus and the peritoneum while repairing the incision. The intrauterine cavity was cleansed of any remaining debris. The uterine incision was reapproximated in 2 layers. The first layer was performed with 0 Vicryl in a running locked stitch. The second layer was an imbricating stitch also using 0 Vicryl. The uterus was replaced into the abdomen. The peritoneum was then irrigated with warm saline. I reexamined the uterine incision and found it to be hemostatic. The rectus abdominis muscles were then reapproximated using 0 Vicryl in a running stitch. The fascia was then reapproximated using 0 Vicryl in a running stitch. The subcutaneous tissue was reapproximated using 0 Vicryl in a running stitch. The skin was reapproximated using a subcuticular stitch with 4-0 Vicryl on a Sohail needle. Steri-Strips were placed with benzoin A sterile dressing was placed. All counts were correct x2. Both the mother and baby were in stable condition.
[2022-12-11] MEDS: ketorolac 30 mg/mL INJ IVP (14:21)
--- NOTE | 2022-12-11 15:01 | ANE.PACU2 ---
Inpatient post-anesthesia follow up: Airway intact: Yes Vital signs: Temperature 97.8 F Pulse Rate 82 Respiratory Rate 15 Blood Pressure 109/66 Pulse Oximetry Oxygen Delivery Me thod Room Air Oxygen Flow Rate Fraction of Inspir ed Oxygen Hydration adequate: Yes Nausea and vomiting: No Pain level: 3 Mental status: Baseline
[2022-12-11] MEDS: dextrose 5%-lactated ringers 1,000 ML 125 ML IV ×2 (16:21→20:54)
[2022-12-11 16:31] LABS: Mean Corpuscular Volume 80.7 fl (85-98); Platelet Count 239 10^3/cmm (157-399); Red Blood Count 3.84 10^6/uL (3.85-5.65)
[2022-12-11] MEDS: sodium chloride 0.9% 500 ML 999 ML IV (16:40)
[2022-12-11 16:52] LABS: Glucose 68 mg/dL (65-115)
[2022-12-11 17:02] LABS: Thyroid Stimulating Hormone 2.98 uIU/mL (0.27-4.20)
[2022-12-11] MEDS: docusate sodium 100 mg Capsule PO (18:17)
[2022-12-11] MEDS: ferrous sulfate EC 325 mg Tablet PO (18:18)
[2022-12-11] MEDS: lactated ringers 1,000 ML 999 ML IV (19:36)
--- NOTE | 2022-12-12 03:18 | P.PN_ITS ---
S[employer] Subjective Subjective: Interval history: The patient is doing well. Postoperatively, she was initially having marginal urinary output. She received 1-1/2 L bolus and her output is improved. Her bleeding has been within normal limits. Her pain has been well controlled. She has been ambulating without difficulty. Her diet has not been advanced yet. Labor: Amniotic Membrane Status: Ruptured Monitor Mode: External Contraction Pattern: Irregular Vitals/I&O/Wt Last Vital Signs Temp 97.9 F 12/11/22 22:32 Pulse 78 12/11/22 22:32 Resp 16 12/11/22 22:32 BP 115/79 12/11/22 22:32 Pulse Ox 95 12/11/22 22:32 O2 Del Method Room Air 12/11/22 22:32 12/11/22 12/11/22 12/12/22 14:59 22:59 06:59 Intake Total 2200 / 2200 487.500 / 2687.500 Output Total 600 / 600 415 / 1015 Balance 1600 / 1600 72.500 / 1672.500 Weight last 48 hrs Weight 221 lb Weight 221 lb Physical Exam Narrative: She is in no acute distress Lungs are clear auscultation bilaterally Her heart has a regular rate and rhythm Her fundus is below the umbilicus and firm Her dressing is clean, dry and intact Her extremities have trace edema Urinary Catheter Management: Reyes: Cath Placed During This Visit: yes Reason for Continuing Indwelling Catheter: Required Immobilization for Trauma or Surgery or Anesthesia Urinary Catheter Date of Insertion: 12/11/22 Urinary Catheter Time of Insertion: 06:30 Data 12/11/22 16:08 12/11/22 16:00 A&P Assessment and plan (1) 36 weeks gestation of : (2) Status post : The patient is doing well. I anticipate she will be discharged home tomorrow if she continues to have routine course. A CBC is scheduled for later this morning. Attestations Medical Necessity Statement*: Routine post care Coding Level of Care Code Acute Code for Chg Fwd Diagnoses 36 weeks gestation of Z3A.36 Status post Z98.891
[2022-12-12 05:00] VITALS: BP 118/81; PULSE 73; RESP 16; TEMP 37.1; O2SAT 95
[2022-12-12 06:53] LABS: Hematocrit 28.1 % (36-47); Mean Corpuscular Hemoglobin 25.1 pg (27-33); Mean Corpuscular Volume 81.2 fl (85-98); Platelet Count 224 10^3/cmm (157-399); Red Blood Count 3.46 10^6/uL (3.85-5.65); Red Cell Distribution Width 15.2 % (12.1-15.1); White Blood Count 13.82 10^3/uL (3.29-11.43)
[2022-12-12] MEDS: ketorolac 30 mg/mL INJ IVP (07:07)
[2022-12-12 10:12] VITALS: BP 120/71; PULSE 73
[2022-12-12] MEDS: docusate sodium 100 mg Capsule PO ×2 (10:12→21:04)
[2022-12-12] MEDS: ibuprofen 800 mg tablet PO ×2 (10:12→21:04)
[2022-12-12] MEDS: prenatal vitamin Capsule 1 CAP PO (10:12)
[2022-12-12] MEDS: acetaminophen 325 mg Tablet 650 MG PO (16:39)
[2022-12-12 19:21] LABS: Glucose Point of Care 99 mg/dL (70-110)
[2022-12-12] MEDS: lanolin oint 7 gm 1 APPLIC TOPICAL (21:57)
[2022-12-12 22:42] VITALS: BP 109/75; PULSE 88; RESP 16; TEMP 36.6; O2SAT 96
[2022-12-13 04:16] VITALS: BP 104/69; PULSE 76; RESP 16; TEMP 36.7; O2SAT 97
[2022-12-13] MEDS: HYDROcodone-acetaminophen 5-325 mg Tablet PO (05:28)
[2022-12-13 08:13] LABS: Hepatitis C Virus Antibody Non-Reactive (Nonreactive)
[2022-12-13 08:15] LABS: Hepatitis B Surface AB 3.5 (11.5-1000); Hepatitis B Surface Antigen Non-Reactive (Nonreactive)
--- NOTE | 2022-12-13 08:24 | P.DS_ITS ---
Discharge Providers PROGRAM STRATEGIST Date of Admission: 12/11/22 07:34 Date of Discharge: 12/13/22 Attending Provider at Admission: Tony Luis MD Attending Provider at Discharge: Tony Luis MD Primary Care Provider: Tony Luis MD Diagnoses at Discharge Discharge Diagnosis (1) 36 weeks gestation of : Status: Acute (2) Spontaneous rupture of membranes: Status: Acute (3) History of : Status: Acute Reason for Visit Reason for Visit: Poss [facility] Hospital Course Hospital Course The patient arrived to the hospital with spontaneous rupture membranes. She had had a previous and was planning on repeating. As result she was set up for a and a was performed. There was extensive scar tissue, but no complications. Her course was unremarkable. She breast-fed well. Her bleeding was within normal limits. Her pain was well controlled. Information Peripartum Data: Delivery Method: Vaginal Physical Exam Narrative: She is in no acute distress Lungs are clear auscultation bilaterally Her heart has a regular rate and rhythm Her fundus is below the umbilicus and firm Her incision is clean, dry and intact Her extremities have trace edema Urinary Catheter Management: Reyes: Cath Placed During This Visit: yes, but has since been removed by the nurse Reason for Continuing Indwelling Catheter: Decision to DC Catheter Urinary Catheter Date of Insertion: 12/11/22 Urinary Catheter Time of Insertion: 06:30 Date Urinary Catheter Removed: 12/12/22 Time Urinary Catheter Discontinued: 05:25 History History History 5 Term 2 1 Miscarriages/Ectopic 1 Living Children 4 Discharge Data Studies Completed and Pending Pending at discharge Category Date Time Status HIV 1&2 Antigen & Antibody Routine Lab 12/13/22 07:20 Received Hepatitis B Surface AB Routine Lab 12/13/22 07:20 Results Hepatitis B Surface Antigen Routine Lab 12/13/22 07:20 Results Laboratory Results WBC 13.82 10^3/uL (3.29-11.43) H 12/12/22 06:41 RBC 3.46 10^6/uL (3.85-5.65) L 12/12/22 06:41 Hgb 8.70 g/dL (11.27-16.99) L 12/12/22 06:41 Hct 28.1 % (36-47) L 12/12/22 06:41 MCV 81.2 fl (85-98) L 12/12/22 06:41 MCH 25.1 pg (27-33) L 12/12/22 06:41 MCHC 31.0 g/dL (30-55) 12/12/22 06:41 RDW 15.2 % (12.1-15.1) H 12/12/22 06:41 Plt Count 224 10^3/cmm (157-399) 12/12/22 06:41 MPV 10.0 fL (7.4-10.4) 12/12/22 06:41 Neut % (Auto) 68.5 % 12/11/22 05:36 Lymph % (Auto) 22.6 % 12/11/22 05:36 Gonzales % (Auto) 7.0 % 12/11/22 05:36 Eos % (Auto) 0.9 % 12/11/22 05:36 Baso % (Auto) 0.3 % 12/11/22 05:36 Neut # (Auto) 8.02 10^3/uL (1.8-7.7) H 12/11/22 05:36 Lymph # (Auto) 2.7 10^3/uL (0.8-4.8) 12/11/22 05:36 Gonzales # (Auto) 0.8 10^3/uL (0.2-0.9) 12/11/22 05:36 Eos # (Auto) 0.1 10^3/uL (0.0-0.8) 12/11/22 05:36 Baso # (Auto) 0.0 10^3/uL (0.0-0.1) 12/11/22 05:36 Nucleated RBC % (auto) 0 % 12/11/22 05:36 Nucleated RBCs # 0.0 /100WBC 12/11/22 05:36 Glucose 68 mg/dL (65-115) 12/11/22 16:00 POC Glucose 99 mg/dL (70-110) 12/11/22 06:03 TSH 2.98 uIU/mL (0.27-4.20) 12/11/22 16:00 Insulin-like GF I Positive 12/11/22 04:48 Fluid pH (paper) Inconclusive 12/11/22 04:55 Hep Bs Antigen Non-reactive (Nonreactive) 12/12/22 06:41 Hepatitis C Antibody Non-reactive (Nonreactive) 12/12/22 06:41 Vitals Last Vital Signs Temp 98.0 F 12/13/22 04:16 Pulse 76 12/13/22 04:16 Resp 16 12/13/22 04:16 BP 104/69 12/13/22 04:16 Pulse Ox 97 12/13/22 04:16 O2 Del Method Room Air 12/13/22 04:16 Discharge Plan Discharge Patient Disposition: Home Condition: Stable Prescriptions: New ibuprofen 800 mg Tablet 800 mg PO TID Qty: 45 0RF hydrocodone-acetaminophen 5-325 mg Tablet 1 tab PO Q6H PRN (Reason: Moderate To Severe Pain) Qty: 28 0RF -U 106.5-1 mg Capsule 1 cap PO BREAKFAST Qty: 30 0RF Continued levothyroxine 50 mcg Tablet 50 mcg PO QAM fluoxetine 60 mg tablet 60 mg PO DAILY@22 Discontinued liothyronine [Cytomel] 5 mcg tablet 5 mcg PO DAILY Qty: 90 3RF Rx Instructions: Take one tablet by mouth daily. norgestimate-ethinyl estradiol [Sprintec (28)] 0.25-35 mg-mcg tablet 1 tab PO DAILY@22 metoclopramide HCl [Reglan] 10 mg tablet 10 mg PO Q6H PRN (Reason: nausea and vomiting) Qty: 20 0RF Discharge Orders: Discharge Order (Routine); Ordered 12/13/22 Ordered By: Tony Luis Referrals: Tony Luis MD [Primary Care Provider] - 12/17/22 Discharge Diet: Usual diet Discharge Activity: Limit activity as instructed Patient Instructions: Depression (DC), Bleeding (DC), Preeclampsia and Eclampsia After Delivery (GEN), OB - Toby/Marlon, OB Discharge Report, OB Food/Drug Interaction Guide, OB Care at Home, Opioid Safety Discharge Attestations PROGRAM STRATEGIST Time Spent in Discharge Care*: less than 30 min Coding Level of Care Code Acute Code for Chg Fwd Diagnoses 36 weeks gestation of Z3A.36 Spontaneous rupture of membranes History of Z98.891
[2022-12-13 09:50] VITALS: BP 99/66; PULSE 90; TEMP 36.6; O2SAT 95
[2022-12-13] MEDS: ferrous sulfate EC 325 mg Tablet PO (09:57)
[2022-12-13] MEDS: prenatal vitamin Capsule 1 CAP PO (09:57)
[2022-12-13] MEDS: ibuprofen 800 mg tablet PO (09:57)
[2022-12-13] MEDS: docusate sodium 100 mg Capsule PO (09:57)
[2022-12-13 10:03] LABS: HIV 1 & 2 Antibody Non-Reactive (Non-Reactiv); HIV 1 & 2 Antigen Non-Reactive (Non-Reactiv)
[2022-12-13 11:20] VITALS: BP 99/66; PULSE 90; RESP 16; TEMP 36.6; O2SAT 95
== END 2022-12-13 11:20 | disposition home or self-care (01) | DRG 786 ==
LOC: OPOB 07:36 → OBGYN 07:36
PROVIDERS: Admitting Provider Family Medicine; PCP Family Medicine; Visit Provider Family Medicine
PROC: 10D00Z1 Extraction of Products of Conception, Low, Open Approach (ICD-10-PCS; CPT 59514; principal; 2022-12-11 06:30)
DX: O34.211 Maternal care for low transverse scar from previous cesarean delivery (principal); O60.14X0 Preterm labor third trimester with preterm delivery third trimester, not applicable or unspecified; N85.8 Other specified noninflammatory disorders of uterus; O42.013 Preterm premature rupture of membranes, onset of labor within 24 hours of rupture, third trimester; O69.81X0 Labor and delivery complicated by cord around neck, without compression, not applicable or unspecified; Z3A.36 36 weeks gestation of pregnancy; Z37.0 Single live birth
CPT/HCPCS: 36415; 36416; 51702; 59025; 59409; 82947; 82962; 83986; 84112; 84443; 85025; 85027; 86706; 86803; 87340; 87806; 96374; 96376; 99211; J0690; J1885; J2250; J2274; J2765; J3490; J7040; J7120; J7121

== ENCOUNTER 2023-06-22 04:44 | Emergency (ER) | payer MEDICAID, SELFPAY ==
[2023-06-22 04:51] VITALS: BP 131/75; PULSE 98; RESP 16; TEMP 37; O2SAT 100
--- NOTE | 2023-06-22 04:58 | ED_ITS ---
Documented by User: Jaime Toribio DO 06/22/23 21:01 HPI - Abdominal Pain 2 General: Chief Complaint: Abdominal Pain Stated Complaint: right abdomen pain Time Seen by Provider: 06/22/23 04:47 History of Present Illness: Patient presents to the ER with complaints of right lower quadrant abdominal pain. She says it started 3 to 4 days ago but has gotten worse throughout this morning. Patient does complain of nausea. Patient says it is sharp and stabbing and there is nothing she can do that makes it better or makes it worse. Patient has had her appendix and gallbladder removed, denies any IBS, diarrhea, constipation patient says she is concerned might be a kidney stone even though she is never had one before her cyst on her ovary. Review of Systems 2 General: Reports: 10 or more systems reviewed and unremarkable except in HPI and below PFSH ED 2 PFSH: Medical History Patient denies medical problems Denies history of: high blood pressure, diabetes, heart, lung, liver, kidney, thyroid, bleeding problems, or clotting problems. PCP: Dr. Wade Surgical History History of History of dilation and curettage (~08/18/18) With suction, per Dr. Liu at [facility] [place] teeth removed History of appendectomy (~10/2011) Laparoscopic procedure Performed by Dr Magaña at [facility] in [place], [place], Previous section (~11/06/16) Low transverse section. Performed by Dr. Le at [facility] in [place], [place]. Diagnosis: Twin gestation. Single layer closure of the uterus. 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 Physical Exam 2 Const: COMMON NORMALS: no acute distress, average body habitus, patient oriented x3, no limitations, healthy appearing, alert and well nourished Neck/C-Spine: COMMON NORMALS: no JVD Chest: COMMONS NORMALS: normal inspection of the chest and normal palpation of entire chest wall Resp: COMMON NORMALS: normal respiratory effort, No retractions, No use of accessory muscles and clear to auscultation bilaterally AUSCULTATION: clear to auscultation bilaterally Cardio: COMMON NORMALS: no JVD, regular rate, regular rhythm, S1 normal heart sound present, S2 normal heart sound present, No gallops present (Cardio), No clicks present (Cardio), No murmurs present (Cardio) and No rub (Cardio) R ATE: regular rate RHYTHM: regular rhythm HEART SOUNDS: S1 normal heart sound present and S2 normal heart sound present GI: COMMON NORMALS: Normal to inspection, nondistended, normoactive bowel sounds present, Soft to palpation, non-tender, No hepatosplenomegaly present and no masses PALPATION: Yes Soft to palpation and Yes No hepatosplenomegaly present Neuro: COMMON NORMALS: patient oriented x3 SENSORIUM/ORIENTATION: Yes alert Course 2 Vital Signs: Vital signs: Vital Signs Temperature 98.6 F 06/22/23 04:51 Pulse Rate 67 06/22/23 07:00 Respiratory Rate 16 06/22/23 08:30 Blood Pressure 118/78 06/22/23 08:30 Pulse Oximetry 94 06/22/23 08:30 Oxygen Delivery Me thod Room Air 06/22/23 08:30 MDM - Abdominal Pain Medical Decision Making Patient presents with right lower quadrant abdominal pain. Patient physical exam and lab work to include CBC CMP lipase urinalysis as well as a abdominal pelvic CT all of which was essentially benign did not show any acute cause of abdominal pain. Anticipate patient be discharged. Differential Diagnosis Likely abdominal pain Medical Records I reviewed the patient's medical records. Lab Data I reviewed the patient's lab results. 06/22/23 05:02 06/22/23 05:02 Labs/Radiology: Radiology Impressions Abdomen/Pelvis CT 06/22/23 05:59 IMPRESSION: No acute findings. COMMENTS: Consistent with the [employer]'s Incidental Findings Committee white paper (J Am Melany Radiol 2018): Any incidental renal lesion less than 1 cm or classified as too small to characterize, or any incidental cystic renal lesion characterized as simple-appearing, is likely benign. No follow-up imaging is recommended for these lesions per consensus recommendations based on imaging criteria. Laboratory Results WBC 8.38 10^3/uL (3.29-11.43) 06/22/23 05:02 RBC 4.39 10^6/uL (3.85-5.65) 06/22/23 05:02 Hgb 11.90 g/dL (11.27-16.99) 06/22/23 05:02 Hct 37.3 % (36-47) 06/22/23 05:02 MCV 85.0 fl (85-98) 06/22/23 05:02 MCH 27.1 pg (27-33) 06/22/23 05:02 MCHC 31.9 g/dL (30-55) 06/22/23 05:02 RDW 13.9 % (12.1-15.1) 06/22/23 05:02 Plt Count 324 10^3/cmm (157-399) 06/22/23 05:02 MPV 9.6 fL (7.4-10.4) 06/22/23 05:02 Neut % (Auto) 56.5 % 06/22/23 05:02 Lymph % (Auto) 30.3 % 06/22/23 05:02 [place] % (Auto) 7.3 % 06/22/23 05:02 Eos % (Auto) 5.1 % 06/22/23 05:02 Baso % (Auto) 0.6 % 06/22/23 05:02 Neut # (Auto) 4.73 10^3/uL (1.8-7.7) 06/22/23 05:02 Lymph # (Auto) 2.5 10^3/uL (0.8-4.8) 06/22/23 05:02 [place] # (Auto) 0.6 10^3/uL (0.2-0.9) 06/22/23 05:02 Eos # (Auto) 0.4 10^3/uL (0.0-0.8) 06/22/23 05:02 Baso # (Auto) 0.1 10^3/uL (0.0-0.1) 06/22/23 05:02 Nucleated RBC % (auto) 0 % 06/22/23 05:02 Nucleated RBCs # 0.0 /100WBC 06/22/23 05:02 Sodium 139 mmol/L (136-145) 06/22/23 05:02 Potassium 4.4 mmol/L (3.5-5.1) 06/22/23 05:02 Chloride 106 mmol/L (98-107) 06/22/23 05:02 Carbon Dioxide 23 mmol/L (22-29) 06/22/23 05:02 Anion Gap 14.4 (5-19) 06/22/23 05:02 BUN 11 mg/dL (6-20) 06/22/23 05:02 Creatinine 0.5 mg/dL (0.5-0.9) 06/22/23 05:02 GFR Calculation 140.4 mL/min (90-130) H 06/22/23 05:02 Glucose 94 mg/dL (65-115) 06/22/23 05:02 Calculated Osmolality 287 mOsm/kg (285-295) 06/22/23 05:02 Calcium 8.7 mg/dL (8.5-10.5) 06/22/23 05:02 Total Bilirubin 0.2 mg/dL (0.15-1.2) 06/22/23 05:02 AST 14 U/L (0-32) 06/22/23 05:02 ALT 8 U/L (0-33) 06/22/23 05:02 Alkaline Phosphatase 109 U/L (35-105) H 06/22/23 05:02 Total Protein 6.9 g/dL (6.6-8.7) 06/22/23 05:02 Albumin 3.8 g/dL (3.5-5.2) 06/22/23 05:02 Globulin 3.1 g/dL (1.3-4.6) 06/22/23 05:02 Lipase 18 U/L (13-60) 06/22/23 05:02 HCG, Qual Negative (Negative) 06/22/23 05:02 Urine Color Yellow (Yellow) 06/22/23 05:02 Urine Appearance Hazy (CLEAR) A 06/22/23 05:02 Urine pH 6 (5-7) 06/22/23 05:02 Ur Specific [place] 1.025 (1.005-1.030) 06/22/23 05:02 Urine Protein Neg (Negative) 06/22/23 05:02 Urine Glucose (UA) Norm (Normal) 06/22/23 05:02 Urine Ketones Negative (Negative) 06/22/23 05:02 Urine Blood 3+ (Negative) H 06/22/23 05:02 Urine Nitrate Negative (Negative) 06/22/23 05:02 Urine Bilirubin Neg (Negative) 06/22/23 05:02 Urine Urobilinogen Neg mg/dL (Negative) 06/22/23 05:02 Ur Leukocyte Esterase Negative (Negative) 06/22/23 05:02 Urine RBC 10-15 /hpf (0-2) H 06/22/23 05:02 Urine WBC None /hpf (0-5) 06/22/23 05:02 Ur Squamous Epith Cells 15-25 /hpf (0-5) H 06/22/23 05:02 Amorphous Sediment Not Reportable 06/22/23 05:02 Urine Bacteria 2+ /hpf (NONE) H 06/22/23 05:02 Urine Mucus 2+ /hpf 06/22/23 05:02 All radiology interpretation(s) finalized by discharge Discharge Plan Discharge Patient Disposition: Home Clinical Impression: Abdominal pain Condition: Stable Prescriptions: No Action fluoxetine 60 mg tablet 60 mg PO DAILY@22 lisinopril 5 mg tablet 5 mg PO DAILY Discharge Orders: Discharge ED (Routine); Ordered 06/22/23 Ordered By: Gigi Kamara Referrals: Tony Luis MD [Primary Care Provider] - Discharge Diet: Usual diet Discharge Activity: Increase activity as tolerated Patient Instructions: Abdominal Pain (ED), Opioid Safety, Pain Management Activity Restrictions/Additional Instructions: Thank you for choosing [facility] for your healthcare needs today. Please realize this is an emergency room and that we are providing you with a medical screening exam and this may not be complete and all inclusive of all the testing and or work up that you may need to determine your ailment or severity of your illness. It is very important that you follow up as instructed or that you return to the Emergency Department should you have concerns or if your condition changes or worsens in any way. You are seen today for abdominal pain your white count was normal urine did not show acute infection CT of the abdomen did not show any emergent or acute pathology. If your symptoms return follow-up with your primary care physician. Sign Out Sign Out Data: Patient Sign Out occurred on 06/22/23 at 05:41. Patient's care was discussed, and care was transferred from Jaime Toribio DO to Gigi Kamara DO. Coding Level of Care Code ED Slitter And Rewinder Machine Operator for Chg Fwd Documented by User: Gigi Kamara DO 06/29/23 09:22 HPI - Abdominal Pain 2 General: Chief Complaint: Abdominal Pain Stated Complaint: right abdomen pain Time Seen by Provider: 06/22/23 04:47 PFSH ED 2 PFSH: Medical History Patient denies medical problems Denies history of: high blood pressure, diabetes, heart, lung, liver, kidney, thyroid, bleeding problems, or clotting problems. PCP: Dr. Wade Surgical History History of History of dilation and curettage (~08/18/18) With suction, per Dr. Liu at [facility] teeth removed History of appendectomy (~10/2011) Laparoscopic procedure Performed by Dr Magaña at [facility] in [place], [place], Previous section (~11/06/16) Low transverse section. Performed by Dr. Le at [facility] in [place], [place]. Diagnosis: Twin gestation. Single layer closure of the uterus. 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 Patient physical exam and lab work to include CBC CMP lipase urinalysis as well as a abdominal pelvic CT all of which was essentially benign did not show any acute cause of abdominal pain. Anticipate patient be discharged. Assumed care at change of shift labs and imaging reviewed. CT was pending results did not show any acute pathology symptoms have improved discharge home clear liquid diet advance as tolerated for worsening or recurrent symptoms return to the emergency room Lab Data 06/22/23 05:02 06/22/23 05:02 Labs/Radiology: Radiology Impressions Abdomen/Pelvis CT 06/22/23 05:59 IMPRESSION: No acute findings. COMMENTS: Consistent with the [employer]'s Incidental Findings Committee white paper (J Am Melany Radiol 2018): Any incidental renal lesion less than 1 cm or classified as too small to characterize, or any incidental cystic renal lesion characterized as simple-appearing, is likely benign. No follow-up imaging is recommended for these lesions per consensus recommendations based on imaging criteria. Laboratory Results WBC 8.38 10^3/uL (3.29-11.43) 06/22/23 05:02 RBC 4.39 10^6/uL (3.85-5.65) 06/22/23 05:02 Hgb 11.90 g/dL (11.27-16.99) 06/22/23 05:02 Hct 37.3 % (36-47) 06/22/23 05:02 MCV 85.0 fl (85-98) 06/22/23 05:02 MCH 27.1 pg (27-33) 06/22/23 05:02 MCHC 31.9 g/dL (30-55) 06/22/23 05:02 RDW 13.9 % (12.1-15.1) 06/22/23 05:02 Plt Count 324 10^3/cmm (157-399) 06/22/23 05:02 MPV 9.6 fL (7.4-10.4) 06/22/23 05:02 Neut % (Auto) 56.5 % 06/22/23 05:02 Lymph % (Auto) 30.3 % 06/22/23 05:02 [place] % (Auto) 7.3 % 06/22/23 05:02 Eos % (Auto) 5.1 % 06/22/23 05:02 Baso % (Auto) 0.6 % 06/22/23 05:02 Neut # (Auto) 4.73 10^3/uL (1.8-7.7) 06/22/23 05:02 Lymph # (Auto) 2.5 10^3/uL (0.8-4.8) 06/22/23 05:02 [place] # (Auto) 0.6 10^3/uL (0.2-0.9) 06/22/23 05:02 Eos # (Auto) 0.4 10^3/uL (0.0-0.8) 06/22/23 05:02 Baso # (Auto) 0.1 10^3/uL (0.0-0.1) 06/22/23 05:02 Nucleated RBC % (auto) 0 % 06/22/23 05:02 Nucleated RBCs # 0.0 /100WBC 06/22/23 05:02 Sodium 139 mmol/L (136-145) 06/22/23 05:02 Potassium 4.4 mmol/L (3.5-5.1) 06/22/23 05:02 Chloride 106 mmol/L (98-107) 06/22/23 05:02 Carbon Dioxide 23 mmol/L (22-29) 06/22/23 05:02 Anion Gap 14.4 (5-19) 06/22/23 05:02 BUN 11 mg/dL (6-20) 06/22/23 05:02 Creatinine 0.5 mg/dL (0.5-0.9) 06/22/23 05:02 GFR Calculation 140.4 mL/min (90-130) H 06/22/23 05:02 Glucose 94 mg/dL (65-115) 06/22/23 05:02 Calculated Osmolality 287 mOsm/kg (285-295) 06/22/23 05:02 Calcium 8.7 mg/dL (8.5-10.5) 06/22/23 05:02 Total Bilirubin 0.2 mg/dL (0.15-1.2) 06/22/23 05:02 AST 14 U/L (0-32) 06/22/23 05:02 ALT 8 U/L (0-33) 06/22/23 05:02 Alkaline Phosphatase 109 U/L (35-105) H 06/22/23 05:02 Total Protein 6.9 g/dL (6.6-8.7) 06/22/23 05:02 Albumin 3.8 g/dL (3.5-5.2) 06/22/23 05:02 Globulin 3.1 g/dL (1.3-4.6) 06/22/23 05:02 Lipase 18 U/L (13-60) 06/22/23 05:02 HCG, Qual Negative (Negative) 06/22/23 05:02 Urine Color Yellow (Yellow) 06/22/23 05:02 Urine Appearance Hazy (CLEAR) A 06/22/23 05:02 Urine pH 6 (5-7) 06/22/23 05:02 Ur Specific [place] 1.025 (1.005-1.030) 06/22/23 05:02 Urine Protein Neg (Negative) 06/22/23 05:02 Urine Glucose (UA) Norm (Normal) 06/22/23 05:02 Urine Ketones Negative (Negative) 06/22/23 05:02 Urine Blood 3+ (Negative) H 06/22/23 05:02 Urine Nitrate Negative (Negative) 06/22/23 05:02 Urine Bilirubin Neg (Negative) 06/22/23 05:02 Urine Urobilinogen Neg mg/dL (Negative) 06/22/23 05:02 Ur Leukocyte Esterase Negative (Negative) 06/22/23 05:02 Urine RBC 10-15 /hpf (0-2) H 06/22/23 05:02 Urine WBC None /hpf (0-5) 06/22/23 05:02 Ur Squamous Epith Cells 15-25 /hpf (0-5) H 06/22/23 05:02 Amorphous Sediment Not Reportable 06/22/23 05:02 Urine Bacteria 2+ /hpf (NONE) H 06/22/23 05:02 Urine Mucus 2+ /hpf 06/22/23 05:02 Discharge Plan Discharge Patient Disposition: Home Clinical Impression: Abdominal pain Condition: Stable Prescriptions: No Action fluoxetine 60 mg tablet 60 mg PO DAILY@22 lisinopril 5 mg tablet 5 mg PO DAILY Discharge Orders: Discharge ED (Routine); Ordered 06/22/23 Ordered By: Gigi Kamara Referrals: Tony Luis MD [Primary Care Provider] - Discharge Diet: Usual diet Discharge Activity: Increase activity as tolerated Patient Instructions: Abdominal Pain (ED), Opioid Safety, Pain Management Activity Restrictions/Additional Instructions: Thank you for choosing [facility] for your healthcare needs today. Please realize this is an emergency room and that we are providing you with a medical screening exam and this may not be complete and all inclusive of all the testing and or work up that you may need to determine your ailment or severity of your illness. It is very important that you follow up as instructed or that you return to the Emergency Department should you have concerns or if your condition changes or worsens in any way. You are seen today for abdominal pain your white count was normal urine did not show acute infection CT of the abdomen did not show any emergent or acute pathology. If your symptoms return follow-up with your primary care physician. Sign Out Sign Out Data: Patient Sign Out occurred on 06/22/23 at 05:41. Patient's care was discussed, and care was transferred from Jaime Toribio DO to Gigi Kamara DO. Coding Level of Care Code ED Slitter And Rewinder Machine Operator for David Leonard
[2023-06-22] MEDS: ondansetron 2 mg/ML SDV 2 mL 4 MG IVP (05:00)
[2023-06-22] MEDS: sodium chloride 0.9% 1,000 ML 999 ML IV (05:00)
[2023-06-22 05:09] LABS: Basophils # 0.1 10^3/uL (0.0-0.1); Basophils % 0.6 %; Eosinophils # 0.4 10^3/uL (0.0-0.8); Eosinophils % 5.1 %; Hematocrit 37.3 % (36-47); Lymphocytes # 2.5 10^3/uL (0.8-4.8); Lymphocytes % 30.3 %; Mean Corpuscular HGB Conc 31.9 g/dL (30-55); Mean Corpuscular Hemoglobin 27.1 pg (27-33); Mean Platelet Volume 9.6 fL (7.4-10.4); Monocytes # 0.6 10^3/uL (0.2-0.9); Monocytes % 7.3 %; Neutrophils # 4.73 10^3/uL (1.8-7.7); Neutrophils % 56.5 %; Nucleated Red Blood Cells % 0 %; Platelet Count 324 10^3/cmm (157-399); Red Blood Count 4.39 10^6/uL (3.85-5.65); Red Cell Distribution Width 13.9 % (12.1-15.1); White Blood Count 8.38 10^3/uL (3.29-11.43)
[2023-06-22 05:10] LABS: HCG Qualitative Urine. Negative (Negative)
[2023-06-22 05:42] LABS: Alanine Aminotransferase 8 U/L (0-33); Albumin Level 3.8 g/dL (3.5-5.2); Alkaline Phosphatase 109 U/L (35-105); Aspartate Amino Transferase 14 U/L (0-32); Blood Urea Nitrogen 11 mg/dL (6-20); Calcium 8.7 mg/dL (8.5-10.5); Carbon Dioxide 23 mmol/L (22-29); Chloride 106 mmol/L (98-107); Creatinine Clr Calc Pharmacy 187.1672; Globulin 3.1 g/dL (1.3-4.6); Glomerular Filtration Rate 140.4 mL/min (90-130); Glucose 94 mg/dL (65-115); Lipase 18 U/L (13-60); Osmolality Calculated 287 mOsm/kg (285-295); Sodium 139 mmol/L (136-145); Total Bilirubin 0.2 mg/dL (0.15-1.2); Total Protein 6.9 g/dL (6.6-8.7)
[2023-06-22 05:43] LABS: Add Urine Microscopic? YES; Bilirubin Urine Neg (Negative); Blood Urine 3+ (Negative); Glucose Urine UA Norm (Normal); Ketones Urine Negative (Negative); Leukocyte Esterase Urine Negative (Negative); Nitrate Urine Negative (Negative); Protein Urine Neg (Negative); Specific Gravity, Urine 1.025 (1.005-1.030); Urine Appearance Hazy (CLEAR); Urine Color Yellow (Yellow); Urobilinogen Urine Neg (Negative); pH Urine 6 (5-7)
[2023-06-22 05:44] LABS: Add Urine Culture? No; Bacteria Urine 2+ /hpf; Mucus Urine 2+ /hpf; Squamous Epithelial Cell Urine 15-25 /hpf (0-5)
[2023-06-22 05:45] LABS: Anion Gap 14.4 (5-19); Potassium 4.4 mmol/L (3.5-5.1)
--- NOTE | 2023-06-22 05:59 | CTR_ITS ---
PROCEDURE INFORMATION: Exam: CT Abdomen And Pelvis Without Contrast Exam date and time: 06/22/2023 6:11 AM Age: 33 years old Clinical indication: Abdominal pain; Flank; Right lower quadrant (rlq); Prior surgery; Surgery date: 6+ months; Surgery type: Appy, ; Additional info: Flank pain/hematuria TECHNIQUE: Imaging protocol: Computed tomography of the abdomen and pelvis without contrast. Radiation optimization: All CT scans at this facility use at least one of these dose optimization techniques: automated exposure control; mA and/or kV adjustment per patient size (includes targeted exams where dose is matched to clinical indication); or iterative reconstruction. COMPARISON: CT abdomen pelvis w con* [id number] 11/13/2017 6:44 AM RADIATION DOSE METRICS: Total DLP (mGy-cm): 1057.83 FINDINGS: Liver: Normal. No mass. Gallbladder and bile ducts: Cholecystectomy. Pancreas: Normal. No ductal dilation. Spleen: Normal. No splenomegaly. Adrenal glands: Normal. No mass. Kidneys and ureters: Punctate nonobstructing left renal calculus. Left renal cyst. No hydronephrosis. Stomach and bowel: Unremarkable. No obstruction. No mucosal thickening. Appendix: Appendectomy. Intraperitoneal space: Small volume free fluid in the pelvis. Vasculature: Unremarkable. No abdominal aortic aneurysm. Lymph nodes: Unremarkable. No enlarged lymph nodes. Urinary bladder: Unremarkable as visualized. Reproductive: Unremarkable as visualized. Bones/joints: Unremarkable. No acute fracture. Soft tissues: Tiny fat containing umbilical hernia. CT/CT kidney stone [id number] IMPRESSION: No acute findings. COMMENTS: Consistent with the [employer] [employer]'s Incidental Findings Committee white paper (J Am Melany Radiol 2018): Any incidental renal lesion less than 1 cm or classified as too small to characterize, or any incidental cystic renal lesion characterized as simple-appearing, is likely benign. No follow-up imaging is recommended for these lesions per consensus recommendations based on imaging criteria.
[2023-06-22 06:11] VITALS: BP 140/97; PULSE 74; RESP 18; O2SAT 98
[2023-06-22 07:00] VITALS: BP 114/82; PULSE 67; RESP 18; O2SAT 95
[2023-06-22 08:30] VITALS: BP 118/78; RESP 16; O2SAT 94
== END 2023-06-22 08:45 | disposition home or self-care (01) ==
PROVIDERS: Emergency Medicine; Emergency Provider Family Medicine; PCP Family Medicine
DX: R10.31 Right lower quadrant pain (principal)
CPT/HCPCS: 74176; 80053; 81001; 81025; 83690; 85025; 96374; 99285; J2405; J7030

== ENCOUNTER 2024-01-18 23:38 | Emergency (ER) | payer SELFPAY ==
[2024-01-18 23:42] VITALS: BP 130/107; PULSE 125; RESP 18; TEMP 37.4; O2SAT 94; BMI 35.5
--- NOTE | 2024-01-18 23:55 | ED_ITS ---
Documented by User: GISELLE Eli 01/19/24 13:13 HPI - URI/Sore Throat 2 General: Chief Complaint: Upper Respiratory Infection Stated Complaint: Fever\Chills Time Seen by Provider: 01/18/24 23:43 Source: patient Mode of arrival: ambulatory Limitations: no limitations History of Present Illness: Patient is a 33-year-old female present to the emergency department complaining of subjective fever and chills beginning at 1900 tonight. 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 Also is reporting nausea and bodyaches. Tachycardic on arrival, and 9.4 temp. States that she took Tylenol prior to arrival. She did not take her temperature at home, states she just felt hot. No pertinent past medical history to report other than patient takes Prozac and lisinopril for blood pressure. MD elicited complaint: fever Onset (ago): hour(s) Consistency: progressively worsening Able to tolerate fluids by mouth: Yes Associated symptoms: Reports chills, fever(s) and nausea; Deny abdominal pain, chest pain, diarrhea, headache(s), nasal congestion or vomiting Related Data Home Medications Medication Instructions Recorded Confirmed fluoxetine 60 mg tablet 60 mg PO DAILY@05/16/20 06/22/23 lisinopril 5 mg tablet 5 mg PO DAILY 06/22/23 06/22/23 Allergies Allergy/AdvReac Type Severity Reaction Status Date / Time metronidazole [From Flagyl] AdvReac Flu-like Verified 01/18/24 23:51 symptoms Review of Systems 2 General: Reports: 10 or more systems reviewed and unremarkable except in HPI and below Const: Reports: fever(s), chills and body aches ENMT: Denies: throat pain, nasal discharge or nasal congestion Card: Denies: chest pain, palpitations or lightheadedness Resp: Denies: dyspnea, productive cough or wheezing GI: Reports: nausea; Denies: abdominal pain, vomiting, diarrhea or constipation : Denies: dysuria or hematuria Musc: Denies: neck pain or back pain Skin/Breast: Denies: rash Neuro: Denies: headache(s) or dizziness PFSH ED 2 PFSH: Medical History Patient denies medical problems Denies history of: high blood pressure, diabetes, heart, lung, liver, kidney, thyroid, bleeding problems, or clotting problems. PCP: Dr. Wade Surgical History History of History of dilation and curettage (~08/18/18) With suction, per Dr. Liu at [facility] teeth removed History of appendectomy (~10/2011) Laparoscopic procedure Performed by Dr Magaña at [facility] in [place], [place], Previous section (~11/06/16) Low transverse section. Performed by Dr. Le at [facility] in [place], [place]. Diagnosis: Twin gestation. Single layer closure of the uterus. 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 Physical Exam 2 Const: COMMON NORMALS: no acute distress, patient oriented x3, no limitations and alert GENERAL APPEARANCE: cooperative NUTRITIONAL APPEARANCE: obese ORIENTATION/CONSCIOUSNESS: Yes awake HENMT: COMMON NORMALS: normocephalic, atraumatic, moist oral mucous membranes and oropharynx normal HEAD & SCALP: normocephalic and atraumatic Eye: COMMON NORMALS: EOMs intact bilaterally and conjunctivae normal C ONJUNCTIVA: Yes conjunctivae normal Neck/C-Spine: COMMON NORMALS: full ROM, supple and no meningeal signs Resp: COMMON NORMALS: normal respiratory effort, No retractions, No use of accessory muscles and clear to auscultation bilaterally EFFORT & INSPECTION: Yes able to speak in complete sentences AUSCULTATION: clear to auscultation bilaterally Cardio: COMMON NORMALS: regular rhythm, No clicks present (Cardio), No murmurs present (Cardio) and No rub (Cardio) RATE: tachycardic RHYTHM: regular rhythm GI: COMMON NORMALS: Soft to palpation INSPECTION: Yes central obesity A USCULTATION: Yes normoactive bowel sounds PALPATION: Yes Soft to palpation and Yes Tenderness to palpation present (GI) Details: LLQ Extremity: COMMON NORMALS: normal to inspection, full ROM and capillary refill normal Neuro: COMMON NORMALS: patient oriented x3, moves all extremities, no focal motor deficits and no sensory deficits noted SENSORIUM/ORIENTATION: Yes alert MENINGEAL SIGNS: Yes no meningeal signs Psych: COMMON NORMALS: mental status grossly normal Skin: COMMON NORMALS: no rashes or lesions noted GENERAL SKIN EXAM: no rashes or lesions noted Course 2 Vital Signs: Vital signs: Vital Signs Temperature 99.4 F 01/18/24 23:42 Pulse Rate 76 01/19/24 02:20 Respiratory Rate 16 01/19/24 01:15 Blood Pressure 123/86 01/19/24 02:20 Pulse Oximetry 99 01/19/24 02:20 Oxygen Delivery Me thod Room Air 01/19/24 01:15 MDM - URI/Sore Throat Lab Data 01/19/24 00:16 01/19/24 00:16 Radiology Impressions Abdomen/Pelvis CT 01/19/24 01:22 IMPRESSION: 1. No bowel obstruction or inflammatory process associated with the bowel. 2. No free air or significant free fluid in the abdomen or pelvis. Laboratory Results WBC 21.01 10^3/uL (3.29-11.43) H 01/19/24 00:16 RBC 4.69 10^6/uL (3.85-5.65) 01/19/24 00:16 Hgb 12.20 g/dL (11.27-16.99) 01/19/24 00:16 Hct 38.0 % (36-47) 01/19/24 00:16 MCV 81.0 fl (85-98) L 01/19/24 00:16 MCH 26.0 pg (27-33) L 01/19/24 00:16 MCHC 32.1 g/dL (30-55) 01/19/24 00:16 RDW 14.1 % (12.1-15.1) 01/19/24 00:16 Plt Count 306 10^3/cmm (157-399) 01/19/24 00:16 MPV 9.3 fL (7.4-10.4) 01/19/24 00:16 Neut % (Auto) 84.4 % 01/19/24 00:16 Lymph % (Auto) 9.7 % 01/19/24 00:16 [place] % (Auto) 4.8 % 01/19/24 00:16 Eos % (Auto) 0.4 % 01/19/24 00:16 Baso % (Auto) 0.2 % 01/19/24 00:16 Neut # (Auto) 17.74 10^3/uL (1.8-7.7) H 01/19/24 00:16 Lymph # (Auto) 2.0 10^3/uL (0.8-4.8) 01/19/24 00:16 [place] # (Auto) 1.0 10^3/uL (0.2-0.9) H 01/19/24 00:16 Eos # (Auto) 0.1 10^3/uL (0.0-0.8) 01/19/24 00:16 Baso # (Auto) 0.1 10^3/uL (0.0-0.1) 01/19/24 00:16 Nucleated RBC % (auto) 0 % 01/19/24 00:16 Nucleated RBCs # 0.0 /100WBC 01/19/24 00:16 Sodium 136 mmol/L (136-145) 01/19/24 00:16 Potassium 3.9 mmol/L (3.5-5.1) 01/19/24 00:16 Chloride 103 mmol/L (98-107) 01/19/24 00:16 Carbon Dioxide 22 mmol/L (22-29) 01/19/24 00:16 Anion Gap 14.9 (5-19) 01/19/24 00:16 BUN 14 mg/dL (6-20) 01/19/24 00:16 Creatinine 0.7 mg/dL (0.5-0.9) 01/19/24 00:16 GFR Calculation 95.2 mL/min (90-130) 01/19/24 00:16 Glucose 112 mg/dL (65-115) 01/19/24 00:16 Calculated Osmolality 283 mOsm/kg (285-295) L 01/19/24 00:16 Calcium 9.1 mg/dL (8.5-10.5) 01/19/24 00:16 Total Bilirubin 0.4 mg/dL (0.15-1.2) 01/19/24 00:16 AST 13 U/L (0-32) 01/19/24 00:16 ALT 11 U/L (0-33) 01/19/24 00:16 Alkaline Phosphatase 114 U/L (35-105) H 01/19/24 00:16 Total Protein 6.9 g/dL (6.6-8.7) 01/19/24 00:16 Albumin 4.5 g/dL (3.5-5.2) 01/19/24 00:16 Globulin 2.4 g/dL (1.3-4.6) 01/19/24 00:16 HCG, Qual Negative (Negative) 01/19/24 01:09 Urine Color Yellow (Yellow) 01/19/24 01:09 Urine Appearance Clear (CLEAR) 01/19/24 01:09 Urine pH 8.5 (5-7) A 01/19/24 01:09 Ur Specific High View 1.018 (1.005-1.030) 01/19/24 01:09 Urine Protein Trace (Negative) A 01/19/24 01:09 Urine Glucose (UA) Negative (Normal) 01/19/24 01:09 Urine Ketones Negative (Negative) 01/19/24 01:09 Urine Blood Negative (Negative) 01/19/24 01:09 Urine Nitrate Negative (Negative) 01/19/24 01:09 Urine Bilirubin Negative (Negative) 01/19/24 01:09 Urine Urobilinogen 1.0 mg/dL (Negative) 01/19/24 01:09 Ur Leukocyte Esterase Negative (Negative) 01/19/24 01:09 Urine RBC 0-4 /hpf (0-2) H 01/19/24 01:09 Urine WBC 0-4 /hpf (0-5) H 01/19/24 01:09 Ur Squamous Epith Cells 15-25 /hpf (0-5) H 01/19/24 01:09 Amorphous Sediment Not Reportable 01/19/24 01:09 Urine Bacteria 2+ /hpf (NONE) H 01/19/24 01:09 Coronavirus (PCR) Negative (Negative) 01/19/24 00:16 Influenza A (PCR) Negative (Negative) 01/19/24 00:16 Influenza Type B (PCR) Negative (Negative) 01/19/24 00:16 RSV (PCR) Negative (Negative) 01/19/24 00:16 Discharge Plan Discharge Patient Disposition: Home Clinical Impression: Upper respiratory infection Qualifiers: URI type: unspecified URI Qualified Code(s): J06.9 - Acute upper respiratory infection, unspecified Fever Qualifiers: Fever type: unspecified Qualified Code(s): R50.9 - Fever, unspecified Condition: Stable Prescriptions: No Action fluoxetine 60 mg tablet 60 mg PO DAILY@22 lisinopril 5 mg tablet 5 mg PO DAILY Discharge Orders: Discharge ED (Routine); Ordered 01/19/24 Ordered By: Jaime Toribio Referrals: Tony Luis MD [Primary Care Provider] - 1 week Patient Instructions: Fever - Adult, Myalgia, Opioid Safety, Pain Management, Upper Respiratory Infection - Adult Activity Restrictions/Additional Instructions: Your evaluation ER did not show any exact cause of your symptomatology. Your white count was elevated which could be signs of infection however the urinalysis, abdomen pelvis CT scan and nasal swabs did not show infection. It is felt he probably have a viral infection. There is no treatment for these other than time and treating the symptoms. Please follow-up with your family practitioner within next 7 to 10 days for further evaluation and treatment as needed. Coding Level of Care Code ED Wind Energy Engineer for Chg Fwd Documented by User: Jaime Toribio DO 01/19/24 02:27 HPI - URI/Sore Throat 2 General: Chief Complaint: Upper Respiratory Infection Stated Complaint: Fever\Chills Time Seen by Provider: 01/18/24 23:43 Related Data Home Medications Medication Instructions Recorded Confirmed fluoxetine 60 mg tablet 60 mg PO DAILY@05/16/20 06/22/23 lisinopril 5 mg tablet 5 mg PO DAILY 06/22/23 06/22/23 Allergies Allergy/AdvReac Type Severity Reaction Status Date / Time metronidazole [From Flagyl] AdvReac Flu-like Verified 01/18/24 23:51 symptoms PFSH ED 2 PFSH: Medical History Patient denies medical problems Denies history of: high blood pressure, diabetes, heart, lung, liver, kidney, thyroid, bleeding problems, or clotting problems. PCP: Dr. Wade Surgical History History of History of dilation and curettage (~08/18/18) With suction, per Dr. Liu at [facility] teeth removed History of appendectomy (~10/2011) Laparoscopic procedure Performed by Dr Magaña at [facility] in [place], [place], Previous section (~11/06/16) Low transverse section. Performed by Dr. Le at [facility] in [place], [place]. Diagnosis: Twin gestation. Single layer closure of the uterus. 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 Patient be discharged home and she has to follow-up with her family practice physician within the next 7 days for further evaluation and treatment. Differential Diagnosis Likely viral infection Medical Records I reviewed the patient's medical records. Lab Data I reviewed the patient's lab results. 01/19/24 00:16 01/19/24 00:16 Radiology Impressions Abdomen/Pelvis CT 01/19/24 01:22 IMPRESSION: 1. No bowel obstruction or inflammatory process associated with the bowel. 2. No free air or significant free fluid in the abdomen or pelvis. Laboratory Results WBC 21.01 10^3/uL (3.29-11.43) H 01/19/24 00:16 RBC 4.69 10^6/uL (3.85-5.65) 01/19/24 00:16 Hgb 12.20 g/dL (11.27-16.99) 01/19/24 00:16 Hct 38.0 % (36-47) 01/19/24 00:16 MCV 81.0 fl (85-98) L 01/19/24 00:16 MCH 26.0 pg (27-33) L 01/19/24 00:16 MCHC 32.1 g/dL (30-55) 01/19/24 00:16 RDW 14.1 % (12.1-15.1) 01/19/24 00:16 Plt Count 306 10^3/cmm (157-399) 01/19/24 00:16 MPV 9.3 fL (7.4-10.4) 01/19/24 00:16 Neut % (Auto) 84.4 % 01/19/24 00:16 Lymph % (Auto) 9.7 % 01/19/24 00:16 [place] % (Auto) 4.8 % 01/19/24 00:16 Eos % (Auto) 0.4 % 01/19/24 00:16 Baso % (Auto) 0.2 % 01/19/24 00:16 Neut # (Auto) 17.74 10^3/uL (1.8-7.7) H 01/19/24 00:16 Lymph # (Auto) 2.0 10^3/uL (0.8-4.8) 01/19/24 00:16 [place] # (Auto) 1.0 10^3/uL (0.2-0.9) H 01/19/24 00:16 Eos # (Auto) 0.1 10^3/uL (0.0-0.8) 01/19/24 00:16 Baso # (Auto) 0.1 10^3/uL (0.0-0.1) 01/19/24 00:16 Nucleated RBC % (auto) 0 % 01/19/24 00:16 Nucleated RBCs # 0.0 /100WBC 01/19/24 00:16 Sodium 136 mmol/L (136-145) 01/19/24 00:16 Potassium 3.9 mmol/L (3.5-5.1) 01/19/24 00:16 Chloride 103 mmol/L (98-107) 01/19/24 00:16 Carbon Dioxide 22 mmol/L (22-29) 01/19/24 00:16 Anion Gap 14.9 (5-19) 01/19/24 00:16 BUN 14 mg/dL (6-20) 01/19/24 00:16 Creatinine 0.7 mg/dL (0.5-0.9) 01/19/24 00:16 GFR Calculation 95.2 mL/min (90-130) 01/19/24 00:16 Glucose 112 mg/dL (65-115) 01/19/24 00:16 Calculated Osmolality 283 mOsm/kg (285-295) L 01/19/24 00:16 Calcium 9.1 mg/dL (8.5-10.5) 01/19/24 00:16 Total Bilirubin 0.4 mg/dL (0.15-1.2) 01/19/24 00:16 AST 13 U/L (0-32) 01/19/24 00:16 ALT 11 U/L (0-33) 01/19/24 00:16 Alkaline Phosphatase 114 U/L (35-105) H 01/19/24 00:16 Total Protein 6.9 g/dL (6.6-8.7) 01/19/24 00:16 Albumin 4.5 g/dL (3.5-5.2) 01/19/24 00:16 Globulin 2.4 g/dL (1.3-4.6) 01/19/24 00:16 HCG, Qual Negative (Negative) 01/19/24 01:09 Urine Color Yellow (Yellow) 01/19/24 01:09 Urine Appearance Clear (CLEAR) 01/19/24 01:09 Urine pH 8.5 (5-7) A 01/19/24 01:09 Ur Specific High View 1.018 (1.005-1.030) 01/19/24 01:09 Urine Protein Trace (Negative) A 01/19/24 01:09 Urine Glucose (UA) Negative (Normal) 01/19/24 01:09 Urine Ketones Negative (Negative) 01/19/24 01:09 Urine Blood Negative (Negative) 01/19/24 01:09 Urine Nitrate Negative (Negative) 01/19/24 01:09 Urine Bilirubin Negative (Negative) 01/19/24 01:09 Urine Urobilinogen 1.0 mg/dL (Negative) 01/19/24 01:09 Ur Leukocyte Esterase Negative (Negative) 01/19/24 01:09 Urine RBC 0-4 /hpf (0-2) H 01/19/24 01:09 Urine WBC 0-4 /hpf (0-5) H 01/19/24 01:09 Ur Squamous Epith Cells 15-25 /hpf (0-5) H 01/19/24 01:09 Amorphous Sediment Not Reportable 01/19/24 01:09 Urine Bacteria 2+ /hpf (NONE) H 01/19/24 01:09 Coronavirus (PCR) Negative (Negative) 01/19/24 00:16 Influenza A (PCR) Negative (Negative) 01/19/24 00:16 Influenza Type B (PCR) Negative (Negative) 01/19/24 00:16 RSV (PCR) Negative (Negative) 01/19/24 00:16 All radiology interpretation(s) finalized by discharge Discharge Plan Discharge Patient Disposition: Home Clinical Impression: Upper respiratory infection Qualifiers: URI type: unspecified URI Qualified Code(s): J06.9 - Acute upper respiratory infection, unspecified Fever Qualifiers: Fever type: unspecified Qualified Code(s): R50.9 - Fever, unspecified Condition: Stable Prescriptions: No Action fluoxetine 60 mg tablet 60 mg PO DAILY@22 lisinopril 5 mg tablet 5 mg PO DAILY Discharge Orders: Discharge ED (Routine); Ordered 01/19/24 Ordered By: Jaime Toribio Referrals: Tony Luis MD [Primary Care Provider] - 1 week Patient Instructions: Fever - Adult, Myalgia, Opioid Safety, Pain Management, Upper Respiratory Infection - Adult Activity Restrictions/Additional Instructions: Your evaluation ER did not show any exact cause of your symptomatology. Your white count was elevated which could be signs of infection however the urinalysis, abdomen pelvis CT scan and nasal swabs did not show infection. It is felt he probably have a viral infection. There is no treatment for these other than time and treating the symptoms. Please follow-up with your family practitioner within next 7 to 10 days for further evaluation and treatment as needed. Coding Level of Care Code ED Wind Energy Engineer for Dvaid Leonard
[2024-01-19 00:23] LABS: Basophils # 0.1 10^3/uL (0.0-0.1); Basophils % 0.2 %; Eosinophils # 0.1 10^3/uL (0.0-0.8); Eosinophils % 0.4 %; Lymphocytes % 9.7 %; Mean Corpuscular HGB Conc 32.1 g/dL (30-55); Mean Platelet Volume 9.3 fL (7.4-10.4); Monocytes % 4.8 %; Neutrophils # 17.74 10^3/uL (1.8-7.7); Neutrophils % 84.4 %; Nucleated Red Blood Cells % 0 %; Platelet Count 306 10^3/cmm (157-399); Red Blood Count 4.69 10^6/uL (3.85-5.65); Red Cell Distribution Width 14.1 % (12.1-15.1); White Blood Count 21.01 10^3/uL (3.29-11.43)
[2024-01-19] MEDS: sodium chloride 0.9% 1,000 ML 999 ML IV (00:34)
[2024-01-19 00:44] LABS: Alanine Aminotransferase 11 U/L (0-33); Albumin Level 4.5 g/dL (3.5-5.2); Alkaline Phosphatase 114 U/L (35-105); Anion Gap 14.9 (5-19); Aspartate Amino Transferase 13 U/L (0-32); Blood Urea Nitrogen 14 mg/dL (6-20); Calcium 9.1 mg/dL (8.5-10.5); Carbon Dioxide 22 mmol/L (22-29); Chloride 103 mmol/L (98-107); Creatinine Clr Calc Pharmacy 133.6908; Globulin 2.4 g/dL (1.3-4.6); Glomerular Filtration Rate 95.2 mL/min (90-130); Glucose 112 mg/dL (65-115); Osmolality Calculated 283 mOsm/kg (285-295); Potassium 3.9 mmol/L (3.5-5.1); Sodium 136 mmol/L (136-145); Total Bilirubin 0.4 mg/dL (0.15-1.2); Total Protein 6.9 g/dL (6.6-8.7)
[2024-01-19 01:13] LABS: Covid PCR NEGATIVE (Negative); Influenza A NEGATIVE (Negative); Influenza B NEGATIVE (Negative); Respiratory Syncytial Virus Ce NEGATIVE (Negative)
[2024-01-19 01:15] VITALS: PULSE 78; RESP 16; O2SAT 95
[2024-01-19 01:18] LABS: Bilirubin Urine Negative (Negative); Blood Urine Negative (Negative); Glucose Urine UA Negative (Normal); Ketones Urine Negative (Negative); Leukocyte Esterase Urine Negative (Negative); Nitrate Urine Negative (Negative); Protein Urine Trace (Negative); Specific Gravity, Urine 1.018 (1.005-1.030); Urine Appearance Clear (CLEAR); Urine Color Yellow (Yellow); pH Urine 8.5 (5-7)
[2024-01-19 01:19] LABS: HCG Qualitative Urine. Negative (Negative)
--- NOTE | 2024-01-19 01:22 | CTR_ITS ---
PROCEDURE INFORMATION: Exam: CT Abdomen And Pelvis With Contrast Exam date and time: 01/19/2024 1:31 AM Age: 33 years old Clinical indication: Abdominal pain; Localized; Left lower quadrant (llq); Prior surgery; Surgery date: 6+ months; Surgery type: Appy 2011. Csection 2022. Peggy , not sure of year; Additional info: Llq abd pain, leukocytosis TECHNIQUE: Imaging protocol: Computed tomography of the abdomen and pelvis with contrast. Radiation optimization: All CT scans at this facility use at least one of these dose optimization techniques: automated exposure control; mA and/or kV adjustment per patient size (includes targeted exams where dose is matched to clinical indication); or iterative reconstruction. Contrast material: OMNI 350; Contrast volume: 100 ml; Contrast route: INTRAVENOUS (IV); COMPARISON: CT kidney stone [id number] 06/22/2023 6:11 AM RADIATION DOSE METRICS: Total DLP (mGy-cm): 1052.2 FINDINGS: Liver: Normal. No mass. Gallbladder and biliary ducts: The gallbladder is absent. Pancreas: Normal. No ductal dilation. Spleen: Normal. No splenomegaly. Adrenal glands: Normal. No mass. Kidneys and ureters: Normal. No hydronephrosis. Stomach and bowel: Unremarkable. No obstruction. No mucosal thickening. Appendix: The appendix is absent. Intraperitoneal space: Unremarkable. No free air. No significant fluid collection. Vasculature: Unremarkable. No abdominal aortic aneurysm. Lymph nodes: Unremarkable. No enlarged lymph nodes. Urinary bladder: Unremarkable as visualized. Reproductive: Unremarkable as visualized. Bones/joints: Unremarkable. No acute fracture. Soft tissues: Unremarkable. CT/CT abdomen pelvis w con* [id number] IMPRESSION: 1. No bowel obstruction or inflammatory process associated with the bowel. 2. No free air or significant free fluid in the abdomen or pelvis.
[2024-01-19 01:38] LABS: Add Urine Culture? No; Add Urine Microscopic? YES; Bacteria Urine 2+ /hpf; RBC Urine 0-4 /hpf (0-2); Squamous Epithelial Cell Urine 15-25 /hpf (0-5); UA Manual Slide Review YES; UA Slide Review UA Slide Review Perf; WBC Urine 0-4 /hpf (0-5)
[2024-01-19] MEDS: iohexol 350 mg/mL 500 mL Btl (per mL) IV (01:38)
[2024-01-19 02:20] VITALS: BP 123/86; PULSE 76; O2SAT 99
[2024-01-19] MEDS: ibuprofen 800 mg tablet PO (02:36)
[2024-01-19] MEDS: ondansetron 2 mg/ML SDV 2 mL 4 MG IVP (02:37)
== END 2024-01-19 02:25 | disposition home or self-care (01) ==
PROVIDERS: Emergency Provider Physician Assistant; PCP Family Medicine
DX: J06.9 Acute upper respiratory infection, unspecified (principal); R50.9 Fever, unspecified; Z11.52 Encounter for screening for COVID-19
CPT/HCPCS: 0241U; 74177; 80053; 81001; 81025; 85025; 96361; 96374; 99285; J2405; J7030